=== PATIENT | female | born 1955 | race Caucasian/White ===

== ENCOUNTER 2020-08-23 23:36 | Inpatient (IN) ==
--- NOTE | 2020-08-24 00:09 | Emergency Department Note ---
History of Present Illness General Chief complaint: Abdominal Pain Stated complaint: ABD PAIN Time Seen by Provider: 08/23/20 23:49 Source: patient Mode of arrival: ambulatory Limitations: no limitations History of Present Illness Provider complaint: abdominal pain Onset (ago): day(s) 4 Location: abdomen Radiation: back Severity: severe Pain Consistency: + constant Maximum Pain Intensity: 10 Current Pain Intensity: 10 Quality: + constant Relieved By: + none Exacerbated By: + eating Associated symptoms: + nausea/vomiting Treatments prior to arrival: none This is a 65-year-old female who presents complaining of several days of upper abdominal pain which she feels is similar to a prior episode of pancreatitis. Patient states her last episode of pancreatitis was 20 years ago. She states it was secondary to a gallstone. She had already had her gallbladder taken out previously. She states as result of that she has been was 3 months hospitalized at [facility] in [place] and ultimately became a diabetic as result of that experience. Patient states pain began Sunday evening, and has been constant since then. She states she has been intermittently nauseated but has not vomited. No diarrhea or change in bowel movements. States pain is mostly in her upper abdomen, however today began to radiate into her back. No fevers, no recent illness or exposure. No recent change in medications or diet. Patient states last thing she ate prior to pain starting on Sunday evening was tuna. Patient states she did get her first dose of coronavirus vaccine. She did previously have coronavirus back in June. Pt seen during a time of high acuity and national emergency pandemic while wearing PPE. Home Medications Medication Instructions Recorded Confirmed Type aspirin 81 mg PO DAILY 08/24/20 08/24/20 History calcium carbonate [Calcium 600] 600 mg PO DAILY 08/24/20 08/24/20 History insulin lispro protamin-lispro 12 unit SUBCUT BID 08/24/20 08/24/20 History [Humalog Mix 75-25 KwikPen] lisinopril 10 mg PO DAILY 08/24/20 08/24/20 History metoprolol succinate 25 mg PO DAILY 08/24/20 08/24/20 History gynkjvaz-bla-jcrc-FA-lutein 1 tab PO DAILY 08/24/20 08/24/20 History [Multivitamin Women 50 Plus] Allergies Allergy/AdvReac Type Severity Reaction Status Date / Time Sulfa (Sulfonamide Allergy Intermediate MOUTH Verified 08/24/20 00:11 Antibiotics) SWELLING meperidine AdvReac NAUSEA Verified 08/24/20 00:11 morphine AdvReac NAUSEA Verified 08/24/20 00:11 oxycodone AdvReac NAUSEA Verified 08/24/20 00:11 Past Med/Surg History Medical History Diabetes Pancreatitis Social History Smoking Status: Never smoker Hx Alcohol Use: Yes Alcohol type: wine Hx Substance Use: No Preferred Language: Azerbaijani Communication Ability: Effective Beliefs That Will Affect Care: None Current Living Situation: Spouse Other Information That Helps Us Care for You: No Feels Safe at Home: Yes Safety Concerns: Feels Safe At This Time Assistive Devices: None Review of Systems See HPI for pertinent positives & negatives. and A total of 10 systems reviewed and were otherwise negative Physical Exam Vital Signs Vital Signs - 24 hr 08/24/20 00:13 08/24/20 00:30 08/24/20 01:00 Pulse Rate 62 60 60 Pulse Rate from SpO2 Sensor 63 61 61 Respiratory Rate 26 H 29 H 18 Blood Pressure 183/82 H 160/92 H 139/82 Blood Pressure Mean 115 114 101 Pulse Oximetry 100 100 99 08/24/20 01:49 08/24/20 02:00 08/24/20 02:31 Pulse Rate 69 66 73 Pulse Rate from SpO2 Sensor 69 67 73 Respiratory Rate 23 18 28 H Blood Pressure 165/85 H 152/86 H 175/101 H Blood Pressure Mean 111 108 125 Pulse Oximetry 99 100 100 08/24/20 03:45 Pulse Rate 54 L Pulse Rate from SpO2 Sensor 54 L Respiratory Rate 7 L Blood Pressure 154/81 H Blood Pressure Mean 105 Pulse Oximetry 100 GENERAL: alert, uncomfortable appearing, well nourished, no distress, non-toxic EYE EXAM: normal conjunctiva, PERRL and EOM's grossly intact OROPHARYNX: no exudate, no erythema, lips, buccal mucosa, and tongue normal and mucous membranes are moist NECK: supple, no nuchal rigidity, no adenopathy, non-tender LUNGS: Clear to auscultation. Normal chest wall mechanics, no w/r/r HEART: no murmurs, S1 normal and S2 normal ABDOMEN: abdomen soft, upper abdominal tenderness with palpation, normo-active bowel sounds, no masses, no rebound or guarding. BACK: Back is symmetrical on inspection and there is no deformity, no midline tenderness, no CVA tenderness. SKIN: no rashes and no bruising UPPER EXTREMITIES: upper extremities are grossly normal. FROM, nml pulses b/l. LOWER EXTREMITIES: No pitting edema. FROM, nml pulses b/l. NEURO EXAM: Normal sensorium, cranial nerves II-XII grossly intact, normal speech, no gross weakness of arms, no gross weakness of legs. Gross sensation intact. Course Course 0220: Updated on labs and CT imaging. Pt states still having pain, no nausea. Patient and daughter at bedside now relaying more information regarding her pancreatitis and subsequent surgeries several years ago. 0243: Discussed with Dr. Herrera. 0250: Discussed with Jaswinder De Leon PA-C covering for general surgery. He will evaluate the patient. Administered Medications Acetaminophen (Acetaminophen 325 Mg Tab) 650 mg PO Q4H PRN PRN Reason: Headache or Pain Stop: 09/23/20 16:17 Last Admin: 08/24/20 16:45 Dose: 650 mg Documented by: [id number] Enoxaparin Sodium (Enoxaparin Inj 60 Mg/0.6 Ml Syr) 60 mg SQ Q12H [facility] Stop: 09/23/20 14:29 Last Admin: 08/24/20 16:05 Dose: 60 mg Documented by: [id number] Pantoprazole Sodium 40 mg/ (Syringe) 10 mls @ 5 mls/min IV BID [facility] Stop: 09/23/20 08:59 Last Admin: 08/24/20 20:24 Dose: 5 mls/min Documented by: [id number] Admin: 08/24/20 09:51 Dose: Not Given Documented by: [id number] Sodium Chloride (Nss 1000ml) 1,000 mls @ 125 mls/hr IV .Q8H [facility] Stop: 09/23/20 08:49 Last Admin: 08/24/20 09:49 Dose: 125 mls/hr Documented by: [id number] Piperacillin Sod/Tazobactam (Sod 3.375 gm/ Dextrose) 115 mls @ 28.75 mls/hr IV Q8H [facility]; Protocol Stop: 09/03/20 13:59 Last Admin: 08/24/20 21:53 Dose: 28.8 mls/hr Documented by: [id number] Infusion: 08/24/20 18:08 Dose: 0 mls/hr Documented by: [id number] Admin: 08/24/20 13:34 Dose: 28.8 mls/hr Documented by: [id number] Insulin Aspart (Insulin Aspart 100 Units/Ml 3 Ml Pen) 0 units SC ACHS [facility] Stop: 09/23/20 08:44 Last Admin: 08/24/20 20:20 Dose: Not Given Documented by: [id number] Cosigned by: [id number] Admin: 08/24/20 17:27 Dose: 5 units Documented by: [id number] Cosigned by: [id number] Admin: 08/24/20 12:00 Dose: 2 units Documented by: [id number] Cosigned by: [id number] Admin: 08/24/20 09:39 Dose: Not Given Documented by: [id number] Cosigned by: [id number] Metoprolol Succinate (Metoprolol Succ 25mg Ext Rel Tab) 25 mg PO DAILY [facility] Stop: 09/23/20 08:59 Last Admin: 08/24/20 09:49 Dose: 25 mg Documented by: [id number] Discontinued Medications Heparin Sodium/Dextrose (Heparin Iv Adult Wt-Based Standard With Bolus Protocol) 1 ea IV Q15M [facility]; Protocol Stop: 09/23/20 14:10 Last Admin: 08/24/20 15:22 Dose: Not Given Documented by: [id number] Hydromorphone HCl (Hydromorphone Inj 0.5 Mg/0.5 Ml Syr) 0.5 mg IV Q15M PRN PRN Reason: Pain Stop: 09/07/20 00:00 Last Admin: 08/24/20 02:34 Dose: 0.5 mg Documented by: [id number] Admin: 08/24/20 00:30 Dose: 0.5 mg Documented by: [id number] Sodium Chloride (Nss 1000ml) 1,000 mls @ 125 mls/hr IV .Q8H [facility] Stop: 09/23/20 00:00 Last Admin: 08/24/20 08:18 Dose: Not Given Documented by: [id number] Infusion: 08/24/20 08:18 Dose: 0 mls/hr Documented by: [id number] Admin: 08/24/20 00:32 Dose: 125 mls/hr Documented by: [id number] Pantoprazole Sodium 40 mg/ (Syringe) 10 mls @ 5 mls/min IV NOW ONE Stop: 08/24/20 02:09 Last Admin: 08/24/20 02:34 Dose: 5 mls/min Documented by: [id number] Piperacillin Sod/Tazobactam (Sod 3.375 gm/ Dextrose) 115 mls @ 230 mls/hr IV NOW STA; Protocol Stop: 08/24/20 09:18 Last Infusion: 08/24/20 11:17 Dose: 0 mls/hr Documented by: [id number] Admin: 08/24/20 09:48 Dose: 230 mls/hr Documented by: [id number] Ioversol (Optiray 300 100ml) 100 ml IV ONCE ONE Stop: 08/24/20 01:41 Last Admin: 08/24/20 01:40 Dose: 86 ml Documented by: [id number] Ondansetron HCl (Ondansetron Inj 2 Mg/Ml 2 Ml Vial) 4 mg IV NOW STA Stop: 08/24/20 00:01 Last Admin: 08/24/20 00:29 Dose: 4 mg Documented by: [id number] Ondansetron HCl (Ondansetron Inj 2 Mg/Ml 2 Ml Vial) 4 mg IV NOW STA Stop: 08/24/20 04:59 Last Admin: 08/24/20 05:04 Dose: 4 mg Documented by: [id number] Medical Decision Making Differential Diagnosis Differential diagnoses includes but is not limited to gastritis, peptic ulcer disease, GERD, gallbladder disease, pancreatitis, small bowel obstruction, acute coronary syndrome, pericarditis, ischemic bowel, irritable bowel disease, irritable bowel syndrome, appendicitis, diverticulitis, malignancy, hernia, urinary tract infection, torsion, [/ectopic (if female)], perforation, trauma, infectious. Medical Records Attestation: I reviewed the patient's medical records. Home Medications Current Medication List: was personally reviewed by me Laboratory Data Attestation: I reviewed the patient's lab results. Result diagrams: 08/24/20 09:28 08/24/20 09:28 Lab Results 08/24/20 08/24/20 08/24/20 Range/Units 00:15 00:15 00:15 WBC 9.56 (4.8-10.8) K/uL RBC 4.97 (4.2-5.4) M/uL Hgb 15.3 (12.0-16.0) g/dL Hct 42.9 (37-47) % MCV 86.3 (80-100) fL MCH 30.8 (25-34) pg MCHC 35.7 (32-36) g/dL RDW Std Deviation 41.6 (36.4-46.3) fL RDW Coeff of Steph 13.1 (11.5-14.5) % Plt Count 177 (130-400) K/uL MPV 11.2 H (7.4-10.4) fL Immature Gran % (Auto) 0.1 % Neut % (Auto) 65.9 % Lymph % (Auto) 19.6 % [place] % (Auto) 10.3 % Eos % (Auto) 3.6 % Baso % (Auto) 0.5 % Neut # (Auto) 6.31 (1.4-6.5) K/uL Lymph # (Auto) 1.87 (1.2-3.4) K/uL [place] # (Auto) 0.98 H (0.11-0.59) K/uL Eos # (Auto) 0.34 (0-0.5) K/uL Baso # (Auto) 0.05 (0-0.2) K/uL Immature Gran # (Auto) 0.01 (0.00-0.02) K/uL PT 10.9 (9.0-12.0) Seconds INR 1.1 (0.9-1.1) Sodium 142 (136-145) mmol/L Potassium 4.2 (3.5-5.1) mmol/L Chloride 110 H (98-107) mmol/L Carbon Dioxide 24 (21-32) mmol/L Anion Gap 8.0 (3-11) BUN 32 H (7-18) mg/dl Creatinine 1.46 H (0.6-1.2) mg/dl Est Cr Clr Drug Dosing 33.6 ml/min Est GFR ( Amer) 43.6 Est GFR (Non-Af Amer) 37.6 BUN/Creatinine Ratio 22.1 H (10-20) Glucose 132 H (70-99) mg/dl Calcium 10.1 (8.5-10.1) mg/dl Magnesium 2.0 (1.8-2.4) mg/dl Total Bilirubin 0.7 (0.2-1) mg/dl AST 18 (15-37) U/L ALT 24 (12-78) U/L Alkaline Phosphatase 116 (45-117) U/L Troponin I < 0.015 (0-0.045) ng/ml Total Protein 8.5 H (6.4-8.2) gm/dl Albumin 4.2 (3.4-5.0) gm/dl Globulin 4.3 H (2.5-4.0) gm/dl Albumin/Globulin Ratio 1.0 (0.9-2) Lipase 26 L (73-393) U/L Procalcitonin (0-0.5) ng/ml Urine Color Urine Appearance (Clear) Urine pH (4.5-7.5) Ur Specific [place] (1.000-1.030) Urine Protein (Negative) Urine Glucose (UA) (Negative) Urine Ketones (Negative) Urine Blood (Negative) Urine Nitrite (Negative) Urine Bilirubin (Negative) Urine Urobilinogen (Negative) Ur Leukocyte Esterase (Negative) Urine WBC (Auto) (0-5) /hpf Urine RBC (Auto) (0-4) /hpf U Hyaline Cast (Auto) (0-5) /lpf U Epithel Cells (Auto) (0-5) /lpf Urine Bacteria (Auto) (Negative) Ur Renal Epithelial Cell Calcium Oxalate Crystal (None Prsent) Granular Casts (0) /lpf WBC Casts (0) /lpf 08/24/20 08/24/20 Range/Units 00:17 00:17 WBC (4.8-10.8) K/uL RBC (4.2-5.4) M/uL Hgb (12.0-16.0) g/dL Hct (37-47) % MCV (80-100) fL MCH (25-34) pg MCHC (32-36) g/dL RDW Std Deviation (36.4-46.3) fL RDW Coeff of Steph (11.5-14.5) % Plt Count (130-400) K/uL MPV (7.4-10.4) fL Immature Gran % (Auto) % Neut % (Auto) % Lymph % (Auto) % [place] % (Auto) % Eos % (Auto) % Baso % (Auto) % Neut # (Auto) (1.4-6.5) K/uL Lymph # (Auto) (1.2-3.4) K/uL [place] # (Auto) (0.11-0.59) K/uL Eos # (Auto) (0-0.5) K/uL Baso # (Auto) (0-0.2) K/uL Immature Gran # (Auto) (0.00-0.02) K/uL PT (9.0-12.0) Seconds INR (0.9-1.1) Sodium (136-145) mmol/L Potassium (3.5-5.1) mmol/L Chloride (98-107) mmol/L Carbon Dioxide (21-32) mmol/L Anion Gap (3-11) BUN (7-18) mg/dl Creatinine (0.6-1.2) mg/dl Est Cr Clr Drug Dosing ml/min Est GFR ( Amer) Est GFR (Non-Af Amer) BUN/Creatinine Ratio (10-20) Glucose (70-99) mg/dl Calcium (8.5-10.1) mg/dl Magnesium (1.8-2.4) mg/dl Total Bilirubin (0.2-1) mg/dl AST (15-37) U/L ALT (12-78) U/L Alkaline Phosphatase (45-117) U/L Troponin I (0-0.045) ng/ml Total Protein (6.4-8.2) gm/dl Albumin (3.4-5.0) gm/dl Globulin (2.5-4.0) gm/dl Albumin/Globulin Ratio (0.9-2) Lipase (73-393) U/L Procalcitonin 0.06 (0-0.5) ng/ml Urine Color Yellow Urine Appearance Clear (Clear) Urine pH 5.0 (4.5-7.5) Ur Specific [place] 1.017 (1.000-1.030) Urine Protein Negative (Negative) Urine Glucose (UA) Negative (Negative) Urine Ketones 1+ H (Negative) Urine Blood Negative (Negative) Urine Nitrite Negative (Negative) Urine Bilirubin Negative (Negative) Urine Urobilinogen Negative (Negative) Ur Leukocyte Esterase Trace H (Negative) Urine WBC (Auto) 10-30 H (0-5) /hpf Urine RBC (Auto) 0-4 (0-4) /hpf U Hyaline Cast (Auto) 5-10 H (0-5) /lpf U Epithel Cells (Auto) >30 H (0-5) /lpf Urine Bacteria (Auto) 1+ H (Negative) Ur Renal Epithelial Cell Not Reportable Calcium Oxalate Crystal Present A (None Prsent) Granular Casts 1-5 H (0) /lpf WBC Casts 1-5 H (0) /lpf Imaging Data Radiologist's Impression: CT abdomen and pelvis with contrast: Poorly characterized processes in the upper abdomen without the use of enteric contrast. Apparent thickening and heterogeneity involving the stomach and duodenum, may be from peptic ulcer disease/ulcers or gastroenteritis. Extensive edema in the surrounding area, cannot exclude occult perforation. No pneumoperitoneum. Cannot exclude fluid collections. Reactive thickening in the colon and small bowel in this region. Probable complex gallbladder with air, cannot exclude fistula to the GI tract or eroded stone etc. Pneumobilia. No visible pancreatic parenchyma. IVC filter. Appendix not identified. Nonobstructive bowel gas pattern. Edema in the mesentery. 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 Mesenteric nodes. Basilar atelectasis/pneumonitis. Radiologist: Nazia Ruelas MD ECG Data Attestation: I personally reviewed and interpreted this ECG as follows: Indication: + abdominal pain Rate (beats per minute): 63 Rhythm: + normal sinus ECG Intervals/blocks: + Normal QRS and + Normal QT ECG [place]: + Normal ECG ST segments: + Normal ST segments MDM Narrative This is a 65-year-old female who presents with 4 to 5 days of upper abdominal pain that she felt was consistent with a prior episode of pancreatitis. Patient with extensive past surgical history secondary to the prior episode of pancreatitis. Labs are drawn and sent, patient sent for CT imaging of the abdomen and pelvis. Patient's labs reassuring. UA suboptimal, patient with no symptoms. I do not suspect occult UTI. Patient was nauseated and was given medication for nausea as well as pain, was started on IV fluids as a precaution. Patient with complicated CT read per overnight stat rad. Patient did not have a surgical abdomen on multiple rechecks and repeat exams. She was made aware of all results. Patient was afebrile, no leukocytosis, no elevated procalcitonin. Given persistence of pain, and possible need for GI evaluation given mention of inflammation along the stomach and duodenum, I discussed with her additional inpatient management. She verbalized understanding was in agreement. Patient was started on IV Protonix. I did discuss the case and asked general surgery to consult, as well as discussed the case with the hospitalist. Patient was hemodynamically stable while she was in the emergency department. An order was placed for continuous cardiac monitoring. The monitor shows a rate of _62_ with _normal sinus__ rhythm. Impression & Plan Abdominal pain, Nausea & vomiting Discharge Plan Visit Data Chief Complaint: Abdominal Pain Stated Complaint: ABD PAIN ED Provider: Marissa Gutiérrez Discharge Problem: Abdominal pain, Nausea & vomiting Patient Disposition: Admitted As Inpatient Discharge Instructions Interventions: ED Discharge Assessment Last Done: 08/24/20 07:37 Discharge Problem: Abdominal pain Qualifiers: Abdominal location: upper abdomen, unspecified Qualified Code(s): R10.10 - Upper abdominal pain, unspecified Nausea & vomiting Qualifiers: Vomiting type: unspecified Vomiting Intractability: non-intractable Qualified Code(s): R11.2 - Nausea with vomiting, unspecified
[2020-08-24 00:28] LABS: Basophils # (auto) 0.05 K/uL (0-0.2); Basophils % (auto) 0.5 %; Eosinophils # (auto) 0.34 K/uL (0-0.5); Eosinophils % (auto) 3.6 %; Hematocrit (blood only) 42.9 % (37-47); Hemoglobin 15.3 g/dL (12.0-16.0); Immature Granulocytes # (auto) 0.01 K/uL (0.00-0.02); Immature Granulocytes % (auto) 0.1 %; Lymphocytes # (auto) 1.87 K/uL (1.2-3.4); Lymphocytes % (auto) 19.6 %; Mean Corpuscular Hemoglobin 30.8 pg (25-34); Mean Corpuscular Hgb Conc 35.7 g/dL (32-36); Mean Corpuscular Volume 86.3 fL (80-100); Mean Platelet Volume 11.2 fL (7.4-10.4); Monocytes # (auto) 0.98 K/uL (0.11-0.59); Monocytes % (auto) 10.3 %; Neutrophils # (auto) 6.31 K/uL (1.4-6.5); Neutrophils % (auto) 65.9 %; Platelet Count 177 K/uL (130-400); RDW Coefficient of Variation 13.1 % (11.5-14.5); RDW Standard Deviation 41.6 fL (36.4-46.3); Red Blood Count 4.97 M/uL (4.2-5.4); White Blood Count 9.56 K/uL (4.8-10.8)
[2020-08-24] MEDS: HYDROmorphone INJ 0.5 MG/0.5 ML SYR IV PRN ×2 (00:30→02:34)
[2020-08-24] MEDS: SODIUM CHLORIDE 0.9% 1000ML 1,000 ML IV SCH ×4 (00:32→23:58)
[2020-08-24 00:35] LABS: Appearance Urine Clear (Clear); Bilirubin Urine Negative (Negative); Blood Urine Negative (Negative); Color Urine Yellow; Epithelial Cell Urine Auto >30 /lpf (0-5); Glucose Urine UA Negative (Negative); Ketones Urine 1+ (Negative); Leukocyte Esterase Urine Trace (Negative); Nitrite Urine Negative (Negative); Protein Urine Negative (Negative); RBC Urine Automated 0-4 /hpf (0-4); Specific Gravity Urine 1.017 (1.000-1.030); Urobilinogen Urine Negative (Negative)
[2020-08-24 00:40] LABS: INR 1.1 (0.9-1.1); Prothrombin Time 10.9 Seconds (9.0-12.0)
[2020-08-24 00:50] LABS: Alanine Aminotransferase 24 U/L (12-78); Albumin Level 4.2 gm/dl (3.4-5.0); Aspartate Aminotransferase 18 U/L (15-37); BUN Creatinine Ratio 22.1 (10-20); Blood Urea Nitrogen 32 mg/dl (7-18); Calcium 10.1 mg/dl (8.5-10.1); Carbon Dioxide 24 mmol/L (21-32); Chloride 110 mmol/L (98-107); Creatinine Clr Calc Pharmacy 33.6 ml/min; Est GFR (African American) 43.6; Est GFR (Non-African American) 37.6; Glucose 132 mg/dl (70-99); Lipase 26 U/L (73-393); Potassium 4.2 mmol/L (3.5-5.1); Sodium 142 mmol/L (136-145)
[2020-08-24 00:55] LABS: Alkaline Phosphatase 116 U/L (45-117); Bilirubin,Total 0.7 mg/dl (0.2-1); Globulin 4.3 gm/dl (2.5-4.0); Total Protein 8.5 gm/dl (6.4-8.2); Troponin I < 0.015 ng/ml (0-0.045)
[2020-08-24 00:58] LABS: Calcium Oxalate Crystals Urine Present (None Prsent)
[2020-08-24 01:00] LABS: Bacteria Urine Automated 1+ (Negative)
[2020-08-24] MEDS ORDERED: OPTIRAY 300 100mL IV ONE (01:40)
[2020-08-24] MEDS ORDERED: PANTOprazole 40 MG in SYRINGE 0 ML IV ONE (02:08)
--- NOTE | 2020-08-24 03:31 | Surgery Consultation ---
Date of Consultation August 24, 2020 Assessment & Plan (1) Abdominal pain: The etiology of patient's abdominal pain has not been ascertained. CT scan and clinical presentation raises concern for potential peptic ulcer disease. Discussed the case with the emergency room physician and the patient is being admitted to the hospital by the hospitalist service. Due to the CT scan reading may be beneficial to repeat patient's abdominal CAT scan utilizing oral contrast. In addition requesting a gastroenterology consultation for consideration of performing an upper endoscopy should be considered. At the present time patient does not have an acute abdomen requiring emergent surgical intervention. We will continue following while the patient is hospitalized. Supervising Physician Co-Signing Physician Notes Patient was discussed with Jaswinder De Leon overnight, imaging personally reviewed as well as the labs. 65-year-old female with complex surgical history to include pancreatic resection for chronic pancreatitis along with hepaticojejunostomy and gastrojejunostomy, possible Nasima-en-Y. This was many years ago and she did have some difficulty with hepatic strictures afterwards but she has not had any issues for several years. She no longer follows with her surgeon. She has been having epigastric pain seems to be worse after eating. In the emergency department she had stable vitals and a benign abdominal exam. Her labs showed a normal white count with no left shift. CT scan overnight read showed inflammation fluid around the stomach and small bowel concerning for possible marginal ulcer, and an occult perforation cannot be ruled out. The formal read by our radiologist showed no evidence of perforation but agreed with the rest of it. We repeated the CT scan with oral contrast and there was no evidence of extravasation. At this point she likely has a marginal ulcer and would benefit from Protonix and sulcal fate. GI should be consulted for possible endoscopy. Of note she now has a positive Covid test and is on the Covid driscoll. Surgery will follow peripherally, call with questions or concerns. If any surgical intervention is required, she should be transferred to a tertiary center due to her complex surgical history. History of Present Illness Reason for Consultation: Abdominal pain History of Present Illness This is a 65-year-old female who presented to [facility] emergency department secondary to abdominal pain that has been present x3 days. She notes pain is primarily located in epigastric area. She says the pain does radiate to her back and is worse after eating anything. Initially she did not have any nausea vomiting but over the past 12 hours she has had nausea vomiting but denies hematemesis. She denies any palliative factors for her abdominal pain. She notes that she did have a normal bowel movement this morning and den ies any recent melanotic stools. She denies any chest pain. She denies any shortness of breath. She denies any fevers, shakes, chills. Patient does have a complicated surgical gastroenterology history. Patient says in the past she has suffered from chronic pancreatitis. She is seen by various specialists at [facility] in [place]. Because of her chronic pancreatitis patient did require a cholecystectomy as well as a Nasima-en-Y hepaticojejunostomy was performed in 2003. She notes that this was her most recent abdominal surgery but has had numerous other abdominal surgeries in the past. She does note with her litany of abdominal surgeries she has had the majority of her pancreas surgically resected. As result of some of her surgery she did develop a biliary stricture which required multiple ERCPs with stent placement and exchanges that was performed on a for 6-week basis but was most recently performed in 2003. Patient notes that since 2003 she has been doing relatively well from a gastroenterology standpoint and does not seen a business team leader or surgical supervisor since that time. She merely follows with her local family physician for her medical care. In the emergency department patient did have labs and imaging which were independently reviewed by myself. Labs consisted of a CBC which revealed her hemoglobin, hematocrit, white blood cell count, and platelet count were all within normal range. Her INR was noted to be normal. A chemistry profile showed that her sodium and potassium were normal. She had slight elevations of her BUN/creatinine at 32 and 1.4. Her bilirubin, LFTs, alkaline phosphatase, and lipase were all not elevated. Urinalysis did reveal 1+ bacteria, 10-30 white blood cells per high-power field, and trace leukocyte esterase. A Covid test has yet to be performed but is no over the mention the patient did receive her Covid vaccine. In addition to labs she did have a CT scan of her abdomen pelvis utilizing IV contrast but no oral contrast. The study showed thickening of the stomach and duodenum with edema of the surrounding area. Pneumobilia was noted however there is no pneumoperitoneum noted. There is no evidence of small bowel obstruction. At the time of my interview the patient was resting in bed. She was in no distress but was having some epigastric abdominal discomfort. Allergies Allergy/AdvReac Type Severity Reaction Status Date / Time Sulfa (Sulfonamide Allergy Intermediate MOUTH Verified 08/24/20 00:11 Antibiotics) SWELLING meperidine AdvReac NAUSEA Verified 08/24/20 00:11 morphine AdvReac NAUSEA Verified 08/24/20 00:11 oxycodone AdvReac NAUSEA Verified 08/24/20 00:11 Home Medications Medication Instructions Recorded Confirmed Type aspirin 81 mg PO DAILY 08/24/20 08/24/20 History calcium carbonate [Calcium 600] 600 mg PO DAILY 08/24/20 08/24/20 History insulin lispro protamin-lispro 12 unit SUBCUT BID 08/24/20 08/24/20 History [Humalog Mix 75-25 KwikPen] lisinopril 10 mg PO DAILY 08/24/20 08/24/20 History metoprolol succinate 25 mg PO DAILY 08/24/20 08/24/20 History fvluptsz-bab-wqxr-FA-lutein 1 tab PO DAILY 08/24/20 08/24/20 History [Multivitamin Women 50 Plus] Patient History Medical History Diabetes Pancreatitis Social History Smoking Status: Never smoker Hx Alcohol Use: Yes Alcohol type: wine Hx Substance Use: No Preferred Language: Romanian Communication Ability: Effective Beliefs That Will Affect Care: None Current Living Situation: Spouse Other Information That Helps Us Care for You: No Feels Safe at Home: Yes Safety Concerns: Feels Safe At This Time Review of Systems Constitutional: no fever and no chills Eyes: no diplopia Ear, Nose, Mouth, Throat: no ear pain Respiratory: no cough and no dyspnea Cardiovascular: no chest pain Gastrointestinal: + abdominal pain, + nausea and + vomiting; no coffee ground emesis, no diarrhea/loose stools and no blood in stools Genitourinary: no dysuria Musculoskeletal: no back pain Integumentary: no rash Neurologic: no localized weakness Physical Exam Constitutional: well developed and well nourished; no acute distress Eyes: no conjunctival abnormality Wears glasses ENMT: Ears: no hearing impairment Neck: trachea midline Respiratory: normal respiratory effort; no respiratory distress and no labored breathing Cardiovascular: Rate/Rhythm: regular rate and regular rhythm Gastrointestinal (Abdomen): Abdomen is soft and nondistended. Bowel sounds are present. No rebound tenderness or guarding. Patient did have pain with palpation noted in the epigastric region. Patient had a well-healed midline incision. No palpable hernias. Musculoskeletal: No calf tenderness Skin: normal turgor Neurologic: moves all extremities Psychiatric: Orientation: alert and oriented x 3 Affect: + anxious affect Results & Data ([facility]) Vital Signs (Past 12 Hours) Vital Signs Temp Pulse Resp BP Pulse Ox 08/24/20 01:00 60 18 139/82 99 08/24/20 00:30 60 29 H 160/92 H 100 08/24/20 00:13 62 26 H 183/82 H 100 08/23/20 23:44 36.6 C 70 20 165/83 H 99 PG Care Time/CCT Total # of Minutes Spent Total Time Spent with Patient: Total time spent is greater than 50% in coordination of care (as documented) at patient's floor/unit and/or counseling patient: Coding Level of Care Code 42262 Inpt Consult Level 5 Diagnoses Abdominal pain R10.9
[2020-08-24] MEDS ORDERED: ONDANSETRON INJ 2 MG/ML 2 ML VIAL IV STA ×2 (04:58)
[2020-08-24 05:55] LABS: Influenza A virus by PCR Negative (Neg); Influenza B virus by PCR Negative (Neg); RSV by PCR Negative (Neg)
[2020-08-24 06:07] LABS: SARS CoV2 RNA(COVID-19) InHosp POSITIVE (Negative)
[2020-08-24] MEDS ORDERED: PIPERACILL/TAZOBAC CONSULT ACTIVE PRN (08:15)
[2020-08-24] MEDS ORDERED: HYDROmorphone INJ 0.5 MG/0.5 ML SYR IV PRN (08:15)
[2020-08-24] MEDS ORDERED: ONDANSETRON INJ 2 MG/ML 2 ML VIAL IV PRN (08:15)
[2020-08-24] MEDS ORDERED: NITROGLYCERIN SL 0.4 MG/TAB TAB SL PRN (08:15)
--- NOTE | 2020-08-24 08:39 | History and Physical Report ---
DATE OF ADMISSION: 08/24/2020 CHIEF COMPLAINT: Abdominal pain. HISTORY OF PRESENT ILLNESS: A 65-year-old female with past medical history significant for type 2 diabetes, history of idiopathic chronic pancreatitis, subclinical hypothyroidism, diaphragmatic hernia, hypertension, chronic kidney disease stage III, history of Dupuytren's contracture of the right hand, factor V Leiden mutation, status post IVC filter. Lives with her , comes with severe abdominal pain. Abdominal pain started on Sunday, but not getting better. Mostly in the upper abdomen epigastric region Passed a bowel movement today. In the ER, she started to have nausea and vomiting. Denies any other complaints. No chest pain or shortness of breath. No cough, no fever, no chills, no headache, no blurred visions, no earache, no runny nose, no sore throat. Ambulating okay. Normal bladder movements. The patient has a history of necrotizing pancreatitis secondary to gallstones in February of 2001. At that time, she was in critical condition in septic shock status post intubation and she underwent replacement of Raegan patch and several washouts during a long stay in the hospital and finally her patch was removed and abdomen was closed in April of 2001. 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 The patient says since that hospitalization she was doing fine. ALLERGIES: SULFA ANTIBIOTICS, MEPERIDINE, MORPHINE, OXYCODONE. PAST MEDICAL HISTORY: As mentioned above. 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 MEDICATIONS: The patient is on aspirin 81 mg p.o. daily, calcium carbonate 600 mg p.o. daily, Humalog Mix 75/25 12 units b.i.d., lisinopril 10 mg p.o. daily, metoprolol succinate 25 mg p.o. daily, multivitamins 1 tablet p.o. daily. FAMILY HISTORY: Significant for brother has factor V Leiden deficiency, sister has factor V Leiden deficiency, daughter has thyroid cancer, brother has diabetes, father has diabetes, mother has diabetes and heart disorder and stroke. SOCIAL HISTORY: . No smoking, no alcohol, no drug use. REVIEW OF SYSTEMS: As per HPI. Rest of the review of systems negative. PHYSICAL EXAMINATION: GENERAL: The patient is of moderate build, not in acute distress. VITAL SIGNS: Temperature 36.6, pulse 65, respiratory rate 12, blood pressure 133/68, oxygen 100% on room air. HEENT: Pupils equal, round, and reactive to light. Oral mucosa moist. NECK: No JVD, no neck masses. CARDIOVASCULAR: S1, S2 heard, regular rate and rhythm, no murmur, no gallop. RESPIRATORY SYSTEM: Normal AP diameter. No accessory muscle use. No wheezing, no crackles. ABDOMEN: Soft, bowel sounds present. Tenderness in the epigastric region. Guarding present. No rebound tenderness. No distention. CENTRAL NERVOUS SYSTEM: Cranial nerves II-XII grossly intact, nonfocal. EXTREMITIES: No edema, no erythema. LABORATORY DATA: WBC 9.5, hemoglobin 15.3, hematocrit 42.9, platelets 177. PT 10.9, INR 1.1. Sodium 142, potassium 4.2, chloride 110, bicarbonate 24, BUN 32, creatinine 1.4, serum glucose 132, calcium 10.1, magnesium 2, total bilirubin 0.7, AST 18, ALT 24, alkaline phosphatase 116, troponin I less than 0.015. Lipase 26. Procalcitonin 0.06. Urinalysis, trace leukocyte esterase. SARS-CoV-2 PCR pending. EKG: Normal sinus rhythm with a rate of 63, no significant change was found. IMAGING DATA: CT of abdomen and pelvis with IV contrast, preliminary report shows apparent thickening and heterogenicity involving the stomach and duodenum, may be from peptic ulcer disease, gastroenteritis, extensive edema in the surrounding area. Cannot exclude occult perforation, no pneumoperitoneum, cannot exclude fluid collection, reactive thickening of the colon and small bowel in the region. No visible pancreatic parenchyma, IVC filter. Appendix not identified, nonobstructive bowel gas pattern, edema in the mesentery. 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 ASSESSMENT AND PLAN: This is a 65-year-old female who presents with severe abdominal pain. 1. Severe abdominal pain: History of necrotic pancreatitis status post debridement in 2000 and later had common biliary duct stricture and had hepatojejunostomy in December 2003. Lipase is 26. Today, CAT scan with IV contrast, preliminary report is showing possible bowel perforation, but no pneumoperitoneum and patient does not seem to be surgical abdomen. Seen By surgery and recommends Ct abdomen with po contrast. Plan is to repeat CAT scan with oral contrast and also consult GI in the a.m. We will keep her n.p.o., IV fluids, IV Dilaudid p.r.n., IV Zofran p.r.n., and closely monitor in [facility]. 2. History of diabetes: Hold Humalog Mix. Will place on insulin sliding scale. Follow the blood sugar, follow HbA1c level. 3. History of hypertension: Hold lisinopril. Continue Toprol-XL. Will monitor the blood pressure. 4. Acute kidney injury on chronic kidney disease stage III: Baseline creatinine around 1.2, presently with creatinine of 1.4. Getting fluids. Holding lisinopril.Will follow the labs. 5. History of possible urinary tract infection: Will start on empiric Rocephin. Follow the cultures. 6. History of factor V Leiden mutation: Status post IVC filter. 7. Deep venous thrombosis prophylaxis, sequential compression devices for now. DISPOSITION: Admit to [facility]. Expect to discharge home and follow with family doctor. Level 1 full code. Addendum: routine covid test came back positive. Currently seems asymptomatic. isolation precautions. Will monitor. MTDD
[2020-08-24] MEDS ORDERED: PIPERACILLIN/TAZOBACTAM 3.375 GM in DEXTROSE 5% 100 ML IV STA (08:49)
--- NOTE | 2020-08-24 09:22 | Electrocardiogram Report ---
Test Reason : Blood Pressure : / mmHG Vent. Rate : 063 BPM Atrial Rate : 063 BPM P-R Int : 162 ms QRS Dur : 084 ms QT Int : 416 ms P-R-T Axes : 065 056 048 degrees QTc Int : 425 ms Poor data quality, interpretation may be adversely affected Normal sinus rhythm Normal ECG When compared with ECG of 12-SEP-2012 09:06, No significant change was found Confirmed by Devon Delaney ([id number]) on 08/24/2020 9:22:00 AM Referred By: REFERRED SELF Confirmed By:Devon Delaney
--- NOTE | 2020-08-24 09:35 | CT Scan Report ---
ABDOMEN AND PELVIS CT WITH IV CONTRAST CT DOSE: 286.68 mGy.cm HISTORY: Acute upper abdominal pain with history of pancreatitis upper abd pain, hx pancreatitis TECHNIQUE: Multiaxial CT images of the abdomen and pelvis were performed following the IV administrat ion of 86 cc of Optiray, A dose lowering technique was utilized adhering to the principles of ALARA. COMPARISON STUDY: CTA chest 09/12/2012 FINDINGS: The imaged inferior cardiac chambers are unremarkable. Mild bibasilar atelectasis/scarring. No gross pneumoperitoneum or pneumatosis identified. Unremarkable spleen. Markedly atrophic pancreas and/or pa rtially surgically absent pancreas. Unremarkable adrenal glands. Chronic pneumobilia is also noted on the comparison 2013 exam. The liver is otherwise unremarkable. The gallbladder appears to be surgica lly absent and there are postoperative changes suggestive of enteric biliary anastomosis with air and fluid-filled structure within the lino hepatis, also partially imaged on the 2013 exam. There are t hickened small bowel loops within the abdominal right upper quadrant. Mesenteric calcifications. Unremarkable kidneys, urinary bladder and uterus. Prominent vessels within the pelvis. Atheromatous p laque of the aorta. Infrarenal IVC filter. Prominent retroperitoneal and mesenteric lymph nodes are s een measuring up to 9 mm. Postoperative changes are noted involving the stomach and small bowel of the abdominal left lower adelina drant with additional postoperative changes of the cecum. The appendix is not visualized and may be s urgically absent. There is moderate wall thickening with mucosal hyperemia involving the distal stoma ch and the entirety of the duodenum with associated inflammatory changes and small volume of upper ab dominal ascites. Upper abdominal collateral vessels with likely chronic occlusion of the superior mes enteric and splenic veins. A thrombus of the superior mesenteric vein is noted on image 111. There is no small bowel obstruction. There is mild fecal retention. No abscess. There is a 1.4 cm fluid-fille d structure medial to the duodenum on image 110 series 3. Unremarkable soft tissues. No acute fractur e. IMPRESSION: 1. Postoperative changes of the abdomen and pelvis includes postoperative changes of the stomach and small bowel. Findings suggest prior cholecystectomy with enteric biliary anastomosis. Correlation wit h patient's surgical history recommended. 2. Wall thickening with mucosal hyperemia involving the distal stomach and the entirety of the duoden um is compatible with a nonspecific gastritis with duodenitis and/or peptic ulcer disease. GI consult ation recommended. 3. There is a small peripherally enhancing fluid-filled structure medial to the duodenum which may re flect a duodenal diverticulum. A small abscess or contained perforation considered less likely. No dr ainable fluid collection. 4. Prominent retroperitoneal and mesenteric lymph nodes, likely reactive. 5. No small bowel obstruction or pneumoperitoneum. 6. The pancreas is markedly atrophic and/or partially surgically absent. 7. 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 8. Additional findings as above. ACT 112: Negative or not required by law. The above report was generated using voice recognition software. It may contain grammatical, syntax o r spelling errors. Electronically signed by: Jacob Jaramillo M.D. 08/24/2020 9:34 AM
[2020-08-24] MEDS: INSULIN ASPART 100 UNITS/ML 3 ML PEN SC SCH ×4 (09:39→20:20)
[2020-08-24 09:40] LABS: Basophils # (auto) 0.05 K/uL (0-0.2); Basophils % (auto) 0.7 %; Eosinophils # (auto) 0.25 K/uL (0-0.5); Eosinophils % (auto) 3.4 %; Hematocrit (blood only) 37.5 % (37-47); Hemoglobin 13.1 g/dL (12.0-16.0); Immature Granulocytes # (auto) 0.01 K/uL (0.00-0.02); Immature Granulocytes % (auto) 0.1 %; Lymphocytes # (auto) 1.94 K/uL (1.2-3.4); Lymphocytes % (auto) 26.3 %; Mean Corpuscular Hemoglobin 29.8 pg (25-34); Mean Corpuscular Hgb Conc 34.9 g/dL (32-36); Mean Corpuscular Volume 85.4 fL (80-100); Monocytes # (auto) 0.82 K/uL (0.11-0.59); Monocytes % (auto) 11.1 %; Neutrophils # (auto) 4.32 K/uL (1.4-6.5); Neutrophils % (auto) 58.4 %; Platelet Count 174 K/uL (130-400); RDW Coefficient of Variation 12.9 % (11.5-14.5); RDW Standard Deviation 40.7 fL (36.4-46.3); Red Blood Count 4.39 M/uL (4.2-5.4); White Blood Count 7.39 K/uL (4.8-10.8)
[2020-08-24] MEDS: METOPROLOL SUCC 25MG EXT REL TAB PO SCH (09:49)
[2020-08-24] MEDS: PANTOprazole 40 MG in SYRINGE 0 ML IV SCH ×2 (09:51→20:24)
[2020-08-24 10:06] LABS: BUN Creatinine Ratio 21.4 (10-20); Calcium 9.3 mg/dl (8.5-10.1); Creatinine Clr Calc Pharmacy 38.6 ml/min; Est GFR (African American) 51.6; Est GFR (Non-African American) 44.6; Potassium 4.3 mmol/L (3.5-5.1)
--- NOTE | 2020-08-24 11:28 | CT Scan Report ---
CT OF THE ABDOMEN AND PELVIS WITH ORAL CONTRAST CLINICAL HISTORY: severe abdominal pain. prior ct scan findings COMPARISON STUDY: CT of the abdomen and pelvis August 24, 2020 at 1:32 AM. TECHNIQUE: Axial images of the abdomen and pelvis were obtained without intravenous contrast. Oral co ntrast was administered. Automated exposure control was utilized for the study. A dose lowering tech nique was utilized adhering to the principles of ALARA. FINDINGS: Mild ground glass opacities are noted within the lower lungs. No pneumatosis, free air or p ortal venous gas is present. Pneumobilia is again noted. Evaluation of the abdomen and pelvis is subo ptimal on this unenhanced examination. Evaluation of the abdomen is better depicted on recent contras t-enhanced CT performed earlier today. Postsurgical findings involving the stomach as well as biliary enteric anastomosis are better depicted on the examination. Note is made of persistent marked wall t hickening of the duodenum and multiple jejunal loops within the right upper quadrant. Adjacent inflam mation is noted. This is similar to prior CT. No extraluminal oral contrast is present. The gallbladd er is surgically absent. Venous thrombus is not shown on this unenhanced exam. Unenhanced images of t he spleen, adrenal glands and kidneys are unremarkable. IVC filters in place. There is no evidence fo r a bowel obstruction. Prominent mesenteric nodes are noted. No acute fracture or suspicious lesion i s identified within visualized skeletal structures. There is contrast within the collecting systems, ureters and bladder from recent contrast-enhanced CT. IMPRESSION: 1. Persistent marked wall thickening of the duodenum and multiple jejunal loops with adjacent infiltr ation. Postsurgical findings, as above. The findings are better depicted on contrast enhanced CT perf ormed earlier today without significant change since that exam. The small bowel wall thickening is no nspecific but could be due to venous ischemia given venous thrombus shown on contrast enhanced exam. Peptic ulcer disease/duodenitis could appear similar. Close clinical monitoring is recommended. 2. No pneumoperitoneum. No evidence for a bowel obstruction. ACT 112: Negative or not required by law. Electronically signed by: Lance Cortez M.D. 08/24/2020 11:26 AM
[2020-08-24] MEDS: PIPERACILLIN/TAZOBACTAM 3.375 GM in DEXTROSE 5% 100 ML IV SCH ×2 (13:34→21:53)
[2020-08-24] MEDS ORDERED: Heparin IV Adult Wt-Based Standard WITH Bolus Protocol IV SCH (14:11)
[2020-08-24] MEDS ORDERED: HEPARIN SOD (PORCINE) 1000 UNIT/ML IV ONE (14:25)
[2020-08-24] MEDS ORDERED: HEPARIN SODIUM/DEXTROSE 25,000 UNITS/500 ML BAG IV SCH (14:25)
--- NOTE | 2020-08-24 15:35 | Gastrointestinal Consultation ---
Date of Consultation August 24, 2020 Assessment & Plan (1) Duodenitis: Supervising Physician Co-Signing Physician Notes Attg add: I interviewed and examined pt, reviewed chart abd labs. Pt with complicated PMH notable for Factor 5 leiden, necortizing pancreatitis in 2000, recurrent biliary strictures s/p hepatico-J in 2003, now admit for acute onset of diffuse/epigastric abd pain since Sunday. CT on admission shows diffuse thickening of stomach and duodenum, mild dilation of afferent loop without wall thickening, thrombosis of SMV and splenic vein with some perisplenic collaterals, small amt of ascites. Her pancreas appears largely absent on CT. Labs unremarkable, COVID pos. Review of her avilable med records from [facility] show CTs from 2000 which show nec panc but no mention of venous thrombosis; surgical notes which mention Nasima an Y hepaticoJ and TRISTA in . A/P: Her imaging shows diffuse thickening of the stomach and upper small intestine; this appears too extensive on CT to be explained by PUD. 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 Will empirically anticoagulate, and plan on repeating CT in 4-5 days. Plan on EGD when out of quarantine, empiric PPI in the interim. History of Present Illness Reason for Consultation: Abdominal pain Requesting Physician: Dr. Greenberg Attending Physician: Jas Lockwood DO History of Present Illness Ms. Ambika Clark is a 65 yr old female pt of Dr. Merchant with a hx of DM-2, hypothyroidism, HTN, CKDIII, Factor B Leiden mutation. She underwent hepaticojejunostomy 01/12/04 for biliary stricture secondary to pancreatitis. She presented to the ED today for a burning abdominal pain of several days duration, similar in quality and location to when she experienced pancreatitis years ago. She had nausea/vomiting in the ED, but not prior. No diarrhea. On arrival, she was found to be COVID positive. She denies any respiratory issues, headaches or fevers. On arrival, CBC, CMP and lipase normal. A non contrast CT suggested a wall thickening of the distal stomach and duodenum and chronic thrombi of the SMV and splenic vein with collaterals. Repeat CT with IV and oral contrast, also today did not show any suggestion of perforation. The pt is seen and examined while resting in bed in the Medical ICU/COVID unit. Allergies Allergy/AdvReac Type Severity Reaction Status Date / Time Sulfa (Sulfonamide Allergy Intermediate MOUTH Verified 08/24/20 00:11 Antibiotics) SWELLING meperidine AdvReac NAUSEA Verified 08/24/20 00:11 morphine AdvReac NAUSEA Verified 08/24/20 00:11 oxycodone AdvReac NAUSEA Verified 08/24/20 00:11 Home Medications Medication Instructions Recorded Confirmed Type aspirin 81 mg PO DAILY 08/24/20 08/24/20 History calcium carbonate [Calcium 600] 600 mg PO DAILY 08/24/20 08/24/20 History insulin lispro protamin-lispro 12 unit SUBCUT BID 08/24/20 08/24/20 History [Humalog Mix 75-25 KwikPen] lisinopril 10 mg PO DAILY 08/24/20 08/24/20 History metoprolol succinate 25 mg PO DAILY 08/24/20 08/24/20 History ackzhaxt-udp-pmig-FA-lutein 1 tab PO DAILY 08/24/20 08/24/20 History [Multivitamin Women 50 Plus] Patient History Medical History Diabetes Pancreatitis Social History Smoking Status: Never smoker Hx Alcohol Use: Yes Alcohol type: wine Hx Substance Use: No Preferred Language: Palauan Communication Ability: Effective Beliefs That Will Affect Care: None Current Living Situation: Spouse Other Information That Helps Us Care for You: No Feels Safe at Home: Yes Safety Concerns: Feels Safe At This Time Review of Systems Review of Systems: ROS: Gen: Denies weakness, fevers, weight loss Eyes: No eye redness, or pain, no recent vision changes Resp: No SOB, no cough Cardio: No palpitations/irregular beats, no chest pain GI: See HPI otherwise (-) : Denies pain on urination Skin: No jaundice, itching or new rashes Physical Exam Constitutional: WD/WN, vitals as above Eyes: PERRL, conjunctivae normal, anicteric sclerae ENMT: external ear and nose normal, oropharynx normal Neck: trachea midline, no thyromegaly Respiratory: normal respiratory effort, lungs clear to auscultation Cardiovascular: RRR, no murmur, no edema Gastrointestinal (Abdomen): normal bowel sounds, soft, nontender, no hepatosplenomegaly Skin: no rashes, warm and dry Neurologic: PERRL, EOMI, accommodation nl, no face palsy, no dysarthria Lymphatic: no cervical or axillary lymphadenopathy Results & Data ([facility]) Vital Signs (Past 12 Hours) Vital Signs Temp Pulse Pulse Resp BP BP Pulse Ox 08/24/20 11:16 36.4 C L 56 L 18 130/73 99 08/24/20 08:30 36.6 C 61 20 121/76 100 08/24/20 08:20 36.8 C 68 18 121/76 96 08/24/20 07:00 72 19 142/75 H 100 08/24/20 06:30 78 18 119/60 100 08/24/20 06:00 61 7 L 123/62 100 08/24/20 05:00 70 23 152/90 H 100 08/24/20 04:30 65 12 133/68 100 08/24/20 04:00 56 L 7 L 150/83 H 100 08/24/20 03:45 54 L 7 L 154/81 H 100 Laboratory Results WBC 7.39, Hb 13.4, Hct 37.5. Diagnostic Findings CT abd pelvis (non contrast) 08/24/20: 1. Postoperative changes of the abdomen and pelvis includes postoperative changes of the stomach and small bowel. Findings suggest prior cholecystectomy with enteric biliary anastomosis. Correlation with patient's surgical history recommended. 2. Wall thickening with mucosal hyperemia involving the distal stomach and the entirety of the duodenum is compatible with a nonspecific gastritis with duodenitis and/or peptic ulcer disease. GI consultation recommended. 3. There is a small peripherally enhancing fluid-filled structure medial to the duodenum which may reflect a duodenal diverticulum. A small abscess or contained perforation considered less likely. No drainable fluid collection. 4. Prominent retroperitoneal and mesenteric lymph nodes, likely reactive. 5. No small bowel obstruction or pneumoperitoneum. 6. The pancreas is markedly atrophic and/or partially surgically absent. 7. 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 CT abd/pelvis with oral contrast 08/24/20: 1. Persistent marked wall thickening of the duodenum and multiple jejunal loops with adjacent infiltration. Postsurgical findings, as above. The findings are better depicted on contrast enhanced CT performed earlier today without significant change since that exam. The small bowel wall thickening is nonspecific but could be due to venous ischemia given venous thrombus shown on contrast enhanced exam. Peptic ulcer disease/duodenitis could appear similar. Close clinical monitoring is recommended. 2. No pneumoperitoneum. No evidence for a bowel obstruction.
[2020-08-24] MEDS: ENOXAPARIN INJ 60 MG/0.6 ML SYR SQ SCH (16:05)
[2020-08-24] MEDS ORDERED: ACETAMINOPHEN 325 MG TAB PO PRN (16:18)
[2020-08-25] MEDS: ENOXAPARIN INJ 60 MG/0.6 ML SYR SQ SCH ×2 (01:58→14:28)
[2020-08-25] MEDS: PIPERACILLIN/TAZOBACTAM 3.375 GM in DEXTROSE 5% 100 ML IV SCH ×3 (06:24→22:35)
[2020-08-25] MEDS: PANTOprazole 40 MG in SYRINGE 0 ML IV SCH ×2 (07:31→22:34)
[2020-08-25] MEDS: METOPROLOL SUCC 25MG EXT REL TAB PO SCH (07:32)
[2020-08-25] MEDS: SODIUM CHLORIDE 0.9% 1000ML 1,000 ML IV SCH ×2 (08:19→15:43)
[2020-08-25] MEDS: INSULIN ASPART 100 UNITS/ML 3 ML PEN SC SCH ×4 (09:14→22:25)
--- NOTE | 2020-08-25 15:29 | Hospitalist Progress Note ---
Date of Service August 25, 2020 Assessment & Plan (1) Duodenitis: Presented with severe abdominal pain, h/o necrotizing pancreatitis 2/2 gallstones in 02/2001. 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 Cont Zosyn as she is overall improved. GI considering EGD this admission once off isolation. (2) Splenic vein thrombosis: Currently on empiric anticoagulation with Lovenox since 08/24. Uncertain chronicity of mesenteric venous thrombosis seen on contrast-enhanced CT exam yesterday morning. Consult Vascular surgery. (3) Factor V Leiden: No h/o DVT per her report. Currently not on anticoagulation at home. (4) Acute kidney injury superimposed on chronic kidney disease: baseline creatinine is 1.1. She is currently elevated to 1.3. Will trend BMP. (5) DMII (diabetes mellitus, type 2): Increased hyperglycemia on labs today. Added glargine. (6) HTN (hypertension): Lisinopril held on admission, clinically improved. Will consider restarting. (7) Idiopathic chronic pancreatitis: has a h/o pancreatitis in the past. GI following case. (8) History of COVID-19: This patient was infected with COVID-19 mid-June and was never hospitalized or treated with medical therapies. Her positive result is not currently visible to our system and as she remains COVID positive, she will remain on isolation until this report may be obtained. She is not actively ill with COVID-19 at this time and has already received 1 of 2 covid vaccinations which is still encouraged. Her current symptoms are not thought secondary to a vaccine-related illness or side effect. (9) DVT prophylaxis: Full dose Lovenox-cont for now in case of procedure Full Code Dispo-to home when able. For now cont COVID precautions. Anaid Petty DO [facility] Hospitalist Admission and Anticipated Discharge Date Admission Date: August 24, 2020 Subjective 65 yo F admitted for severe epigastric abdominal pain, improved since admission on current therapy. Reports her pain developed exactly two days after her first covid vaccine shot. She reports an improvement in epigastric and RUQ pain today that is still triggered by eating. Lantus was added to better control glucose Denies respiratory symptoms or other known COVID symptoms at this time. Noted to have had COVID positive infection in mid June-requested records. Currently remaining in isolation. Imaging from yesterday reveals Upper abdominal collateral vessels with likely chronic occlusion of the superior mesenteric and splenic veins. Thrombus of the superior mesenteric vein noted. There is a 1.4 cm fluid-filled structure medial to the duodenum. Differential includes but is not limited to a small duodenal diverticulum versus abscess which is considered less likely. No drainable fluid collection was seen on imaging. Overall there is wall thickening of the distal stomach and entirety of the duodenum consistent with a nonspecific gastritis with duodenitis and/or peptic ulcer disease. GI is considering EGD. She is overall clinically improved. Imaging revealed prominent retroperitoneal and mesenteric lymph nodes that are likely reactive. Review of Systems Review of Systems: All systems reviewed & are unremarkable except as noted in Subjective Physical Exam Physical Exam: CONSTITUTIONAL: WNWD, vitals as above, generally well- appearing EYES: normal conjunctivae, no scleral icterus ENT: external ear and nose normal, MMM RESPIRATORY: clear to auscultation bilaterally, no crackles, rales or wheezes, normal respiratory effort CARDIOVASCULAR: regular rate and rhythm, S1 and 2 heard without murmurs, gallops or rubs, no JVD, no peripheral edema, no carotid bruits GASTROINTESTINAL: normal bowel sounds, soft, TTP in RUQ and epigastric areas, nondistended. MUSCULOSKELETAL: strength 5/5 throughout, head is normocephalic and atraumatic, neck supple, normal palpation of chest wall without tenderness SKIN: warm and dry NEUROLOGIC: CN 2-12 grossly intact, no sensory deficit, normal cognition, normal speech, no tremor. No gross focal deficits. PSYCHIATRIC: alert cooperative and oriented to person, place and time. Results & Data Results & Data ([facility]) Vital Signs (Past 12 Hours) Vital Signs Temp Pulse Pulse Resp BP Pulse Ox Pulse Ox 08/25/20 14:50 64 08/25/20 11:39 36.6 C 63 18 139/68 97 08/25/20 09:40 55 L 08/25/20 08:15 95 08/25/20 07:10 36.7 C 77 20 152/79 H 96 08/25/20 03:43 36.9 C 71 20 142/84 H 96 Medications Administered Current Inpatient Medications Acetaminophen (Acetaminophen 325 Mg Tab) 650 mg PO Q4H PRN PRN Reason: Headache or Pain Stop: 09/23/20 16:17 Last Admin: 08/24/20 16:45 Dose: 650 mg Documented by: Enoxaparin Sodium (Enoxaparin Inj 60 Mg/0.6 Ml Syr) 60 mg SQ Q12H [facility] Stop: 09/23/20 14:29 Last Admin: 08/25/20 14:28 Dose: 60 mg Documented by: Hydromorphone HCl (Hydromorphone Inj 0.5 Mg/0.5 Ml Syr) 0.5 mg IV Q3H PRN PRN Reason: Pain Stop: 09/07/20 08:14 Pantoprazole Sodium 40 mg/ (Syringe) 10 mls @ 5 mls/min IV BID [facility] Stop: 09/23/20 08:59 Last Admin: 08/25/20 07:31 Dose: 5 mls/min Documented by: Piperacillin Sod/Tazobactam (Sod 3.375 gm/ Dextrose) 115 mls @ 28.75 mls/hr IV Q8H [facility]; Protocol Stop: 09/03/20 13:59 Last Admin: 08/25/20 13:15 Dose: 28.8 mls/hr Documented by: Insulin Aspart (Insulin Aspart 100 Units/Ml 3 Ml Pen) 0 units SC ACHS [facility] Stop: 09/23/20 08:44 Last Admin: 08/25/20 13:02 Dose: 11 units Documented by: Insulin Glargine (Insulin Glargine Solostar 100 Units/Ml 3 Ml Pen) 12 units SC BID [facility] Stop: 09/24/20 20:59 Metoprolol Succinate (Metoprolol Succ 25mg Ext Rel Tab) 25 mg PO DAILY [facility] Stop: 09/23/20 08:59 Last Admin: 08/25/20 07:32 Dose: 25 mg Documented by: Miscellaneous Information (Piperacill/Tazobac Consult Active) 1 ea N/A UD PRN PRN Reason: Consult Stop: 09/23/20 08:14 Nitroglycerin (Nitroglycerin Sl 0.4 Mg/Tab Tab) 0.4 mg SL UD PRN PRN Reason: Chest Pain Stop: 09/23/20 08:14 Ondansetron HCl (Ondansetron Inj 2 Mg/Ml 2 Ml Vial) 4 mg IV Q6H PRN PRN Reason: Nausea Stop: 09/23/20 08:14
[2020-08-25] MEDS ORDERED: GLUCAGON FOR INJ 1 MG VIAL IM PRN (15:30)
[2020-08-25] MEDS ORDERED: DEXTROSE 50% 50 ML SYRINGE IV PRN (15:30)
[2020-08-25] MEDS ORDERED: CARBOHYDRATES FOR HYPOGLYCEMIA PO PRN (15:30)
[2020-08-25] MEDS ORDERED: GLUCOSE 40% GEL 15 GM TUBE PO PRN (15:30)
[2020-08-25] MEDS ORDERED: GLUCOSE 10 TABS/TUBE PO PRN (15:30)
[2020-08-25] MEDS ORDERED: INSULIN HUMAN REGULAR PER UNIT 5 UNITS in SYRINGE 4.95 ML IV ONE (18:15)
[2020-08-25] MEDS: INSULIN GLARGINE SOLOSTAR 100 UNITS/ML 3 ML PEN SC SCH (22:30)
[2020-08-26] MEDS: ENOXAPARIN INJ 60 MG/0.6 ML SYR SQ SCH (02:15)
[2020-08-26] MEDS: PIPERACILLIN/TAZOBACTAM 3.375 GM in DEXTROSE 5% 100 ML IV SCH ×2 (06:07→13:45)
[2020-08-26] MEDS: INSULIN ASPART 100 UNITS/ML 3 ML PEN SC SCH ×4 (08:00→20:35)
[2020-08-26] MEDS: INSULIN GLARGINE SOLOSTAR 100 UNITS/ML 3 ML PEN SC SCH (08:00)
[2020-08-26] MEDS: PANTOprazole 40 MG in SYRINGE 0 ML IV SCH ×2 (08:21→20:36)
[2020-08-26] MEDS: METOPROLOL SUCC 25MG EXT REL TAB PO SCH (08:21)
--- NOTE | 2020-08-26 10:10 | Communication Note ---
Date of Service: August 26, 2020 I reviewed the films and chart of this patient. CT scan showed occlusion of the splenic vein and superior mesenteric vein which appears chronic based on the a ppearance of the vessel lumen and the large amount of collateral veins in the area which are compensating for these occlusions. It takes at least a few weeks for this amount of collateral vessels to develop. Due to her liden V and her mesenteric vein thrombosis, would recommend terminal superintendent anticoagulation. If she develops symptoms of bowel ischemia due to venous congestion, the only treatment is resecting the necrotic portion of bowel. Thank you
[2020-08-26] MEDS ORDERED: INSULIN GLARGINE SOLOSTAR 100 UNITS/ML 3 ML PEN SC ONE (11:37)
[2020-08-26] MEDS ORDERED: INSULIN HUMAN REGULAR PER UNIT 5 UNITS in SYRINGE 0 ML IV ONE (11:45)
--- NOTE | 2020-08-26 12:20 | Gastroenterology Progress Note ---
Date of Service August 26, 2020 Assessment & Plan (1) Duodenitis: COVID results received from [facility] - was positive there in June. Per primary hospitalist, the isolation will be discontinued as now thought not a active episode of COVID. Please keep NPO after midnight, plan EGD + enteroscopy tomorrow.. Present on Admission?: Yes Admission and Anticipated Discharge Date Admission Date: August 24, 2020 Supervising Physician Co-Signing Physician Notes I interviewed and examined pt, reviewed chart and labs. Pt without pain, nancy PO, feels well. Ate breakfast with slight pain, ate lunch without difficulty. Abd soft, NT . Acute abdominal pain, remote h/o nec panc Imaging with mesenteric venous thrombosis, collaterals - Her presentation does suggest that she may have acute on chronic MVT, given pain, evidence of portal gastropathy on imaging, and mesenteric edema ascites. DDX for presentation includes aff loop syndrome, although LFT's abnl and no wall thick of aff loop on imaging - She is begin taken out of resp isolation. Will plan EGD/enteroscopy tomorrow to screen for varices, acid-peptic disease, and J-J anastamosis. Subjective 65 yo F with hx of Factor 5 leiden, necrotizing pancreatitis in 2000, recurrent biliary strictures s/p hepatico-J in 2003admitted with epigastric abdominal pain, now nearly resolved, able to eat regular consistency diet w/o pain or nausea. Imaging suggesting upper abdominal collateral vessels with likely chronic occlusion of the superior mesenteric and splenic veins. Thrombus of the superior mesenteric vein noted. gastric and duodenal wall thickening and large area of inflammation/fluid surrounding. Today pt sitting up in a chair at the bedside. Physically well, but emotionally discouraged and looking forward to being able to go home again. Review of Systems Review of Systems: ROS: Gen: Denies weakness, fevers, weight loss Eyes: No eye redness, or pain, no recent vision changes Resp: No SOB, no cough Cardio: No palpitations/irregular beats, no chest pain GI: See HPI otherwise (-) : Denies pain on urination Skin: No jaundice, itching or new rashes Physical Exam Constitutional: WD/WN, vitals as above Eyes: PERRL, conjunctivae normal, anicteric sclerae ENMT: external ear and nose normal, oropharynx normal Neck: trachea midline, no thyromegaly Respiratory: normal respiratory effort, lungs clear to auscultation Cardiovascular: RRR, no murmur, no edema Gastrointestinal (Abdomen): normal bowel sounds, soft, nontender, no hepatosplenomegaly Skin: no rashes, warm and dry Neurologic: PERRL, EOMI, accommodation nl, no face palsy, no dysarthria Lymphatic: no cervical or axillary lymphadenopathy Results & Data ([facility]) Vital Signs (Past 12 Hours) Vital Signs Temp Pulse Resp BP Pulse Ox Pulse Ox 08/26/20 11:22 36.2 C L 62 18 160/93 H 100 08/26/20 08:20 67 08/26/20 08:00 99 08/26/20 07:29 36.5 C 58 L 18 130/79 99 08/26/20 04:13 36.2 C L 61 143/[address] abd/pelvis 08/24/20: 1. Persistent marked wall thickening of the duodenum and multiple jejunal loops with adjacent infiltration. Postsurgical findings, as above. The findings are better depicted on contrast enhanced CT performed earlier today without significant change since that exam. The small bowel wall thickening is nonspecific but could be due to venous ischemia given venous thrombus shown on contrast enhanced exam. Peptic ulcer disease/duodenitis could appear similar. Close clinical monitoring is recommended. 2. No pneumoperitoneum. No evidence for a bowel obstruction.
[2020-08-26 12:46] LABS: Basophils # (auto) 0.02 K/uL (0-0.2); Basophils % (auto) 0.4 %; Eosinophils % (auto) 4.4 %; Hematocrit (blood only) 35.6 % (37-47); Hemoglobin 12.2 g/dL (12.0-16.0); Immature Granulocytes # (auto) 0.01 K/uL (0.00-0.02); Immature Granulocytes % (auto) 0.2 %; Lymphocytes # (auto) 1.44 K/uL (1.2-3.4); Lymphocytes % (auto) 31.5 %; Mean Corpuscular Hemoglobin 29.5 pg (25-34); Mean Corpuscular Hgb Conc 34.3 g/dL (32-36); Mean Platelet Volume 11.6 fL (7.4-10.4); Monocytes # (auto) 0.16 K/uL (0.11-0.59); Monocytes % (auto) 3.5 %; Neutrophils # (auto) 2.74 K/uL (1.4-6.5); Platelet Count 171 K/uL (130-400); RDW Coefficient of Variation 12.6 % (11.5-14.5); RDW Standard Deviation 39.9 fL (36.4-46.3); Red Blood Count 4.14 M/uL (4.2-5.4); White Blood Count 4.57 K/uL (4.8-10.8)
--- NOTE | 2020-08-26 12:53 | Gastrointestinal Consultation ---
Date of Consultation August 24, 2020 History of Present Illness Attending Physician: Jas Lockwood DO Allergies Allergy/AdvReac Type Severity Reaction Status Date / Time Sulfa (Sulfonamide Allergy Intermediate MOUTH Verified 08/24/20 00:11 Antibiotics) SWELLING meperidine AdvReac NAUSEA Verified 08/24/20 00:11 morphine AdvReac NAUSEA Verified 08/24/20 00:11 oxycodone AdvReac NAUSEA Verified 08/24/20 00:11 Home Medications Medication Instructions Recorded Confirmed Type aspirin 81 mg PO DAILY 08/24/20 08/24/20 History calcium carbonate [Calcium 600] 600 mg PO DAILY 08/24/20 08/24/20 History insulin lispro protamin-lispro 12 unit SUBCUT BID 08/24/20 08/24/20 History [Humalog Mix 75-25 KwikPen] lisinopril 10 mg PO DAILY 08/24/20 08/24/20 History metoprolol succinate 25 mg PO DAILY 08/24/20 08/24/20 History kjawummp-gme-gndd-FA-lutein 1 tab PO DAILY 08/24/20 08/24/20 History [Multivitamin Women 50 Plus] Patient History Medical History Diabetes Pancreatitis Social History Smoking Status: Never smoker Hx Alcohol Use: Yes Alcohol type: wine Hx Substance Use: No Preferred Language: Croatian Communication Ability: Effective Beliefs That Will Affect Care: None Current Living Situation: Spouse Other Information That Helps Us Care for You: No Feels Safe at Home: Yes Safety Concerns: Feels Safe At This Time Assistive Devices: Glasses Results & Data ([facility]) Vital Signs (Past 12 Hours) Vital Signs Temp Pulse Pulse Resp BP BP Pulse Ox 08/24/20 11:16 36.4 C L 56 L 18 130/73 99 08/24/20 08:30 36.6 C 61 20 121/76 100 08/24/20 08:20 36.8 C 68 18 121/76 96 08/24/20 07:00 72 19 142/75 H 100 08/24/20 06:30 78 18 119/60 100 08/24/20 06:00 61 7 L 123/62 100 08/24/20 05:00 70 23 152/90 H 100 08/24/20 04:30 65 12 133/68 100 08/24/20 04:00 56 L 7 L 150/83 H 100
[2020-08-26 13:04] LABS: Albumin Globulin Ratio 0.9 (0.9-2); Albumin Level 3.4 gm/dl (3.4-5.0); BUN Creatinine Ratio 14.8 (10-20); Bilirubin,Total 0.6 mg/dl (0.2-1); Calcium 9.1 mg/dl (8.5-10.1); Creatinine Clr Calc Pharmacy 43.8 ml/min; Est GFR (African American) 59.5; Est GFR (Non-African American) 51.3; Globulin 3.8 gm/dl (2.5-4.0); Magnesium 2.3 mg/dl (1.8-2.4); Potassium 4.1 mmol/L (3.5-5.1); Total Protein 7.2 gm/dl (6.4-8.2)
[2020-08-26] MEDS ORDERED: INSULIN HUMAN REGULAR PER UNIT 5 UNITS in SYRINGE 0 ML IV SCH (17:30)
--- NOTE | 2020-08-26 20:27 | Hospitalist Progress Note ---
Date of Service August 26, 2020 Assessment & Plan (1) Duodenitis: Presented with severe abdominal pain, h/o necrotizing pancreatitis 2/2 gallstones in 02/2001. 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 Duodenitis doesn't appear to be infectious at this point and may have been related to inflammation from blood clot. Zosyn stopped. Imaging revealed a 1.4cm fluid filled structure medial to the duodenum, possibly a diverticulum. EGD to review area planned for tomorrow. (2) Superior mesenteric vein thrombosis: thrombus noted in SMV and splenic veins with collateral circulation giving the impression these are somewhat chronic. Currently on empiric anticoagulation with Lovenox since 08/24. There is some question of the chronicity here and she is clearly better after a couple of days of anticoagulation(and abx). Will transition to Eliquis once anticoagulation able to be resumed post-procedure. She will need to be anticoagulated for at least 3 months and possible lifelong. (3) Splenic vein thrombosis: (4) Factor V Leiden: No h/o DVT per her report. Currently not on anticoagulation at home. (5) Acute kidney injury superimposed on chronic kidney disease: baseline creatinine is 1.1. She returned back to baseline. (6) DMII (diabetes mellitus, type 2): Hyperglycemia persisted-increased aggressiveness of insulin coverage. Notably patient is feeling better and eating more than she typically does at home. Also stopped Zosyn which was being given in dextrose. (7) HTN (hypertension): Lisinopril held on admission, clinically improved. Restart now. (8) Idiopathic chronic pancreatitis: has a h/o pancreatitis in the past. GI following case. (9) History of COVID-19: This patient was infected with COVID-19 mid-June and was never hospitalized or treated with medical therapies. Positive result was received along with outpatient note. Will scan into system (07/04/20) She is not actively ill with COVID-19 at this time and has already received 1 of 2 covid vaccinations which is still encouraged. Her current symptoms are not thought secondary to a vaccine-related illness or side effect. (10) DVT prophylaxis: Full dose Lovenox-cont for now in case of procedure Full Code Dispo-to home when able. For now cont COVID precautions. Anaid Petty DO [facility] Hospitalist Admission and Anticipated Discharge Date Admission Date: August 24, 2020 Subjective 65 yo F admitted for severe epigastric abdominal pain, improved since admission on current therapy including Zosyn and anticoagulation with Lovenox. Reports her pain developed exactly two days after her first covid vaccine shot. Collateral vasculature present suggests the clot is greater than one week old and, therefore, less likely a vaccine reaction. However, it does appear acute. Discussed case with GI who is planning an EGD in am. She is improved again today WRT abdominal discomfort with a tremendous improvement with pain/discomfort on exam She is eating well and reports to be eating much more than she was at home Glucose is uncontrolled-Zosyn stopped which was in dextrose Insulin coverage was increased again today. COVID Isolation removed as she was recently sick in June. Review of Systems Review of Systems: All systems reviewed & are unremarkable except as noted in Subjective Physical Exam Physical Exam: CONSTITUTIONAL: WNWD, vitals as above, generally well- appearing EYES: normal conjunctivae, no scleral icterus ENT: external ear and nose normal, MMM RESPIRATORY: clear to auscultation bilaterally, no crackles, rales or wheezes, normal respiratory effort CARDIOVASCULAR: regular rate and rhythm, S1 and 2 heard without murmurs, gallops or rubs, no JVD, no peripheral edema, no carotid bruits GASTROINTESTINAL: normal bowel sounds, soft, nontender (improved!), nondistended. MUSCULOSKELETAL: strength 5/5 throughout, head is normocephalic and atraumatic, neck supple, normal palpation of chest wall without tenderness SKIN: warm and dry NEUROLOGIC: CN 2-12 grossly intact, no sensory deficit, normal cognition, normal speech, no tremor. No gross focal deficits. PSYCHIATRIC: alert cooperative and oriented to person, place and time. Results & Data Results & Data ([facility]) Vital Signs (Past 12 Hours) Vital Signs Temp Pulse Resp BP Pulse Ox 08/26/20 15:08 36.5 C 62 18 147/75 H 100 08/26/20 11:22 36.2 C L 62 18 160/93 H 100 Laboratory Results Short CBC 08/26/20 Range/Units 12:00 WBC 4.57 L (4.8-10.8) K/uL Hgb 12.2 (12.0-16.0) g/dL Hct 35.6 L (37-47) % Plt Count 171 (130-400) K/uL BMP 08/26/20 12:00 Sodium 137 Potassium 4.1 Chloride 105 Carbon Dioxide 26 BUN 17 Creatinine 1.13 Glucose 347 H* Calcium 9.1 Liver Function 08/26/20 Range/Units 12:00 Total Bilirubin 0.6 (0.2-1) mg/dl AST 15 (15-37) U/L ALT 19 (12-78) U/L Alkaline Phosphatase 90 (45-117) U/L Albumin 3.4 (3.4-5.0) gm/dl Medications Administered Current Inpatient Medications Acetaminophen (Acetaminophen 325 Mg Tab) 650 mg PO Q4H PRN PRN Reason: Headache or Pain Stop: 09/23/20 16:17 Last Admin: 08/24/20 16:45 Dose: 650 mg Documented by: Calcium Carbonate (Calcium Carbonate 1250mg Tab) 1,250 mg PO DAILY BURT Stop: 09/26/20 08:59 Dextrose (Dextrose 50% 50 Ml Syringe) 25 - 50 ml IV UD PRN; Protocol PRN Reason: Hypoglycemia Protocol Stop: 09/24/20 15:29 Enoxaparin Sodium (Enoxaparin Inj 60 Mg/0.6 Ml Syr) 60 mg SQ Q12H BURT Stop: 09/23/20 14:29 Last Admin: 08/26/20 02:15 Dose: 60 mg Documented by: Glucagon (Glucagon For Inj 1 Mg Vial) 1 mg IM UD PRN; Protocol PRN Reason: Hypoglycemia Protocol Stop: 09/24/20 15:29 Glucose (Glucose 40% Gel 15 Gm Tube) 15 - 30 gm PO UD PRN; Protocol PRN Reason: Hypoglycemia Protocol Stop: 09/24/20 15:29 Glucose (Glucose 10 Tabs/Tube) 4 - 8 tabs PO UD PRN; Protocol PRN Reason: Hypoglycemia Protocol Stop: 09/24/20 15:29 Hydromorphone HCl (Hydromorphone Inj 0.5 Mg/0.5 Ml Syr) 0.5 mg IV Q3H PRN PRN Reason: Pain Stop: 09/07/20 08:14 Pantoprazole Sodium 40 mg/ (Syringe) 10 mls @ 5 mls/min IV BID BURT Stop: 09/23/20 08:59 Last Admin: 08/26/20 08:21 Dose: 5 mls/min Documented by: Insulin Aspart (Insulin Aspart 100 Units/Ml 3 Ml Pen) 0 units SC ACHS [facility] Stop: 09/23/20 08:44 Last Admin: 08/26/20 18:04 Dose: 9 units Documented by: Insulin Aspart (Insulin Aspart 100 Units/Ml 3 Ml Pen) 0 units SC 0100 ONE Stop: 08/27/20 01:01 Last Admin: 08/26/20 17:56 Dose: 300 units Documented by: Insulin Aspart (Insulin Aspart 100 Units/Ml 3 Ml Pen) 0 units SC 0400 ONE Stop: 08/27/20 04:01 Insulin Glargine (Insulin Glargine Solostar 100 Units/Ml 3 Ml Pen) 20 units SC HS [facility] Stop: 09/25/20 20:59 Insulin Glargine (Insulin Glargine Solostar 100 Units/Ml 3 Ml Pen) 10 units SC QAM [facility] Stop: 09/26/20 08:59 Lisinopril (Lisinopril 10 Mg Tab) 10 mg PO DAILY [facility] Stop: 09/26/20 08:59 Metoprolol Succinate (Metoprolol Succ 25mg Ext Rel Tab) 25 mg PO DAILY [facility] Stop: 09/23/20 08:59 Last Admin: 08/26/20 08:21 Dose: 25 mg Documented by: Miscellaneous (Carbohydrates For Hypoglycemia ) 15 - 30 gm PO UD PRN PRN Reason: Hypoglycemia Treatment Stop: 09/24/20 15:29 Nitroglycerin (Nitroglycerin Sl 0.4 Mg/Tab Tab) 0.4 mg SL UD PRN PRN Reason: Chest Pain Stop: 09/23/20 08:14 Ondansetron HCl (Ondansetron Inj 2 Mg/Ml 2 Ml Vial) 4 mg IV Q6H PRN PRN Reason: Nausea Stop: 09/23/20 08:14
[2020-08-26] MEDS ORDERED: INSULIN GLARGINE SOLOSTAR 100 UNITS/ML 3 ML PEN SC SCH ×3 (21:00)
[2020-08-27] MEDS ORDERED: INSULIN ASPART 100 UNITS/ML 3 ML PEN SC ONE ×2 (01:00→04:00)
[2020-08-27 07:48] LABS: Creatinine Clr Calc Pharmacy 47.9 ml/min; Est GFR (African American) 65.8; Est GFR (Non-African American) 56.7
[2020-08-27] MEDS: PANTOprazole 40 MG in SYRINGE 0 ML IV SCH (08:30)
[2020-08-27] MEDS: METOPROLOL SUCC 25MG EXT REL TAB PO SCH (08:30)
[2020-08-27] MEDS: INSULIN ASPART 100 UNITS/ML 3 ML PEN SC SCH ×4 (08:31→19:46)
[2020-08-27] MEDS ORDERED: INSULIN GLARGINE SOLOSTAR 100 UNITS/ML 3 ML PEN SC SCH (09:00)
[2020-08-27] MEDS ORDERED: lisinopril 10 MG TAB PO SCH (09:00)
[2020-08-27] MEDS ORDERED: CALCIUM CARBONATE 1250MG TAB PO SCH (09:00)
--- NOTE | 2020-08-27 14:39 | Anesthesiology Consultation ---
Date of Service August 27, 2020 Assessment & Plan Chart Review Chart Review: Acceptable Risk for Surgery Consults Requested none ASA ASA4 Proposed Anesthesia Anesthesia Type: MAC Risk / Benefits Reviewed With: PT / POA / Parent / Guardian, Accepts Plan and Informed Consent Obtained Additional Comments: with COVID precautions and full PPE History Surgery Operation Date: 08/27/20 16:30 Proposed Procedures p Esophagogastroduodenoscopy Dr Andino - Majo Andino MD Height/Weight Height: 5 ft 5 in Weight: 55.5 kg Allergies Allergy/AdvReac Type Severity Reaction Status Date / Time Sulfa (Sulfonamide Allergy Intermediate MOUTH Verified 08/24/20 00:11 Antibiotics) SWELLING meperidine AdvReac NAUSEA Verified 08/24/20 00:11 morphine AdvReac NAUSEA Verified 08/24/20 00:11 oxycodone AdvReac NAUSEA Verified 08/24/20 00:11 Medications Home Medications Medication Instructions Recorded Confirmed Last Taken aspirin 81 mg PO DAILY 08/24/20 08/24/20 08/24/20 calcium carbonate [Calcium 600] 600 mg PO DAILY 08/24/20 08/24/20 08/24/20 insulin lispro protamin-lispro 12 unit SUBCUT BID 08/24/20 08/24/20 08/24/20 [Humalog Mix 75-25 KwikPen] 25units today lisinopril 10 mg PO DAILY 08/24/20 08/24/20 08/24/20 metoprolol succinate 25 mg PO DAILY 08/24/20 08/24/20 08/24/20 juvtocaw-wfo-gwmt-FA-lutein 1 tab PO DAILY 08/24/20 08/24/20 08/24/20 [Multivitamin Women 50 Plus] apixaban 5 mg PO BID #70 tab 08/27/20 Unknown Active Medications Generic Name Dose Route Start Last Admin Trade Name Freq PRN Reason Stop Dose Admin Acetaminophen 650 mg 08/24/20 16:18 08/24/20 16:45 Acetaminophen 325 Mg Tab PO 09/23/20 16:17 650 mg Q4H PRN Administration Headache or Pain Calcium Carbonate 1,250 mg 08/27/20 09:00 08/27/20 08:30 Calcium Carbonate 1250mg Tab PO 09/26/20 08:59 1,250 mg DAILY BURT Administration Enoxaparin Sodium 60 mg 08/24/20 14:30 08/26/20 02:15 Enoxaparin Inj 60 Mg/0.6 Ml Syr SQ 09/23/20 14:29 60 mg Q12H BURT Administration Glucose 4 - 8 tabs 08/25/20 15:30 08/27/20 04:12 Glucose 10 Tabs/Tube PO 09/24/20 15:29 4 tabs UD PRN Administration Hypoglycemia Protocol Protocol Pantoprazole Sodium 40 mg/ 10 mls @ 5 mls/min 08/24/20 09:00 08/27/20 08:30 Syringe IV 09/23/20 08:59 5 mls/min BID BURT Administration Insulin Aspart 0 units 08/24/20 08:45 08/27/20 12:12 Insulin Aspart 100 Units/Ml 3 Ml Pen SC 09/23/20 08:44 Not Given ACHS BURT Insulin Glargine 20 units 08/26/20 21:00 08/26/20 20:46 Insulin Glargine Solostar 100 Units/Ml 3 Ml Pen SC 09/25/20 20:59 20 units HS BURT Administration Insulin Glargine 10 units 08/27/20 09:00 08/27/20 10:09 Insulin Glargine Solostar 100 Units/Ml 3 Ml Pen SC 09/26/20 08:59 Not Given QAM BURT Lisinopril 10 mg 08/27/20 09:00 08/27/20 08:30 Lisinopril 10 Mg Tab PO 09/26/20 08:59 10 mg DAILY BURT Administration Metoprolol Succinate 25 mg 08/24/20 09:00 08/27/20 08:30 Metoprolol Succ 25mg Ext Rel Tab PO 09/23/20 08:59 25 mg DAILY BURT Administration NPO Date Last Intake of Fluids: 08/26/20 Time Last Intake of Fluids: 23:59 Date Last Intake of Solids: 08/26/20 Time Last Intake of Solids: 23:59 Past Medical History Medical History Abdominal pain Acute kidney injury superimposed on chronic kidney disease CKD (chronic kidney disease), stage III Diabetes Diaphragmatic hernia DMII (diabetes mellitus, type 2) Duodenitis Factor V Leiden History of cholangitis History of COVID-19 HTN (hypertension) Idiopathic chronic pancreatitis Pancreatitis Presence of IVC filter Splenic vein thrombosis Subclinical hypothyroidism Superior mesenteric vein thrombosis Past Surgical History Surgical History H/O lymph node biopsy Axilla History of exploratory laparotomy History of incision and drainage History of resection of pancreas S/P ERCP Past Anesthesia History No Hx of Anesthesia Complications and No Family Hx of Anesthesia Complications History of PONV No Hx of PONV and No Hx of Motion Sickness Social History Smoking Status: Never smoker Hx Alcohol Use: Yes Alcohol type: wine alcohol intake frequency: a few times a month Hx Substance Use: No Physical Exam Vital Signs Last Vital Signs Temp 36.7 C 08/27/20 11:55 Pulse 66 08/27/20 11:55 Resp 18 08/27/20 11:55 BP 141/92 H 08/27/20 11:55 Pulse Ox 100 08/27/20 11:55 Testing Laboratory Results 08/26/20 12:00 08/27/20 06:43 PT 10.9 Seconds (9.0-12.0) 08/24/20 00:15 INR 1.1 (0.9-1.1) 08/24/20 00:15 Urine Color Yellow 08/24/20 00:17 Urine Appearance Clear (Clear) 08/24/20 00:17 Urine pH 5.0 (4.5-7.5) 08/24/20 00:17 Ur Specific [place] 1.017 (1.000-1.030) 08/24/20 00:17 Urine Protein Negative (Negative) 08/24/20 00:17 Urine Glucose (UA) Negative (Negative) 08/24/20 00:17 Urine Ketones 1+ (Negative) H 08/24/20 00:17 Urine Nitrite Negative (Negative) 08/24/20 00:17 Ur Leukocyte Esterase Trace (Negative) H 08/24/20 00:17 Urine WBC (Auto) 10-30 /hpf (0-5) H 08/24/20 00:17 Urine RBC (Auto) 0-4 /hpf (0-4) 08/24/20 00:17 U Hyaline Cast (Auto) 5-10 /lpf (0-5) H 08/24/20 00:17 U Epithel Cells (Auto) >30 /lpf (0-5) H 08/24/20 00:17 Urine Bacteria (Auto) 1+ (Negative) H 08/24/20 00:17 08/24/20 00:17 Urine Culture - Final Urine,Straight Cath More than three types of organisms present, all low counts mixed probable skin uriel. No further identifications or sensitivities to follow. 08/27/20 08/27/20 08/27/20 12:09 05:47 04:30 POC Glucose 156 H 140 H 90 08/27/20 08/27/20 04:04 04:04 POC Glucose 65 L* 62 L* COVID + 08/24/20 PCR Electrocardiogram Date: 08/24/20 Findings: no NSR @ (64) Other Testing 08/24/[address] WITH IV CONTRAST CT DOSE: 286.68 mGy.cm HISTORY: Acute upper abdominal pain with history of pancreatitis upper abd pain, hx pancreatitis TECHNIQUE: Multiaxial CT images of the abdomen and pelvis were performed following the IV administration of 86 cc of Optiray, A dose lowering technique was utilized adhering to the principles of ALARA. COMPARISON STUDY: CTA chest 09/12/2012 FINDINGS: The imaged inferior cardiac chambers are unremarkable. Mild bibasilar atelectasis/scarring. No gross pneumoperitoneum or pneumatosis identified. Unremarkable spleen. Markedly atrophic pancreas and/or partially surgically absent pancreas. Unremarkable adrenal glands. Chronic pneumobilia is also noted on the comparison 2012 exam. The liver is otherwise unremarkable. The gallbladder appears to be surgically absent and there are postoperative changes suggestive of enteric biliary anastomosis with air and fluid-filled structure within the lino hepatis, also partially imaged on the 2013 exam. There are thickened small bowel loops within the abdominal right upper quadrant. Mesenteric calcifications. Unremarkable kidneys, urinary bladder and uterus. Prominent vessels within the pelvis. Atheromatous plaque of the aorta. Infrarenal IVC filter. Prominent ret roperitoneal and mesenteric lymph nodes are seen measuring up to 9 mm. Postoperative changes are noted involving the stomach and small bowel of the abdominal left lower quadrant with additional postoperative changes of the cecum. The appendix is not visualized and may be surgically absent. There is moderate wall thickening with mucosal hyperemia involving the distal stomach and the entirety of the duodenum with associated inflammatory changes and small volume of upper abdominal ascites. Upper abdominal collateral vessels with likely chronic occlusion of the superior mesenteric and splenic veins. A thrombus of the superior mesenteric vein is noted on image 111. There is no small bowel obstruction. There is mild fecal retention. No abscess. There is a 1.4 cm fluid-filled structure medial to the duodenum on image 110 series 3. Unremarkable soft tissues. No acute fracture. IMPRESSION: 1. Postoperative changes of the abdomen and pelvis includes postoperative changes of the stomach and small bowel. Findings suggest prior cholecystectomy with enteric biliary anastomosis. Correlation with patient's surgical history recommended. 2. Wall thickening with mucosal hyperemia involving the distal stomach and the entirety of the duodenum is compatible with a nonspecific gastritis with duoden itis and/or peptic ulcer disease. GI consultation recommended. 3. There is a small peripherally enhancing fluid-filled structure medial to the duodenum which may reflect a duodenal diverticulum. A small abscess or contained perforation considered less likely. No drainable fluid collection. 4. Prominent retroperitoneal and mesenteric lymph nodes, likely reactive. 5. No small bowel obstruction or pneumoperitoneum. 6. The pancreas is markedly atrophic and/or partially surgically absent. 7. 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 8. Additional findings as above. :
--- NOTE | 2020-08-27 15:27 | History & Physical Bridge Note ---
Date of Service August 27, 2020 History & Physical Bridge Note I have examined the patient, reviewed the History & Physical and in the interval since the performance of the History & Physical I have noted the following changes of clinical significance: no changes noted Enteroscopy today. Patient was explained in detail regarding risks, benefits, limitations and alternatives of the above endoscopic procedure. Risks of intravenous sedation used for procedure were also explained. Risks include, but not limited to perforation, bleeding, infection, respiratory distress, cardiac arrest and . Patient is also aware about the possibility of missed lesion. Patient's questions were answered. The patient verbalized understanding the information and agreed to undergo the procedure.
[2020-08-27] MEDS ORDERED: ePHEDrine sulfate 50 MG/ML AMP IV PRN (16:10)
[2020-08-27] MEDS ORDERED: ONDANSETRON INJ 2 MG/ML 2 ML VIAL IV PRN (16:10)
[2020-08-27] MEDS ORDERED: ATROPINE SULFATE 0.1 MG/ML 10ML SYR IV PRN (16:10)
[2020-08-27] MEDS ORDERED: fentaNYL citrate 100 MCG/2 ML VIAL IV PRN (16:10)
--- NOTE | 2020-08-27 17:53 | GI REPORT ---
Patient Name: Ambika Clark Procedure Date: 08/27/2020 4:13 PM Date of : 1955 Admit Type: Inpatient Age: 65 Gender: Female Attending MD: Majo Andino MD Procedure: Small bowel enteroscopy Providers: Majo Andino MD Referring MD: Anaid Petty Do Indications: Abdominal pain Medicines: Propofol per Anesthesia Complications: No immediate complications. Estimated Blood Loss: Estimated blood loss: none. Procedure: Pre-Anesthesia Assessment: - Prior to the procedure, a History and Physical was performed, and patient medications, allergies and sensitivities were reviewed. The patient's tolerance of previous anesthesia was reviewed. - The risks and benefits of the procedure and the sedation options and risks were discussed with the patient. All questions were answered and informed consent was obtained. - Patient identification and proposed procedure were verified prior to the procedure by the physician and the nurse. The procedure was verified in the procedure room. - Pre-procedure physical examination revealed no contraindications to sedation. After obtaining informed consent, the endoscope was passed under direct vision. Throughout the procedure, the patient's blood pressure, pulse, and oxygen saturations were monitored continuously. The Colonoscope was introduced through the mouth, and advanced to the afferent and efferent jejunal loops. The upper GI endoscopy was accomplished without difficulty. The patient tolerated the procedure well. After obtaining informed consent, the endoscope was passed under direct vision. Throughout the procedure, the patient's blood pressure, pulse, and oxygen saturations were monitored continuously. Findings: The examined esophagus was normal. The entire examined stomach was normal. Two non-bleeding cratered duodenal ulcers with no stigmata of bleeding were found in the duodenal bulb. The largest lesion was 12 mm in largest dimension. The area of the papilla had prominent villous pattern. Biopsies were taken with a cold forceps for histology. Verification of patient identification for the specimen was done by the physician and nurse using the patient's name and date. There was evidence of a widely patent jejunojejunostomy. The afferent jejunal loop and the efferent jejunal loop were both examined and were widely patent and normal. The hepaticojejunostomy was also examined and was normal and widely patent. Impression: - Normal esophagus. - Normal stomach. - Non-bleeding duodenal ulcers with no stigmata of bleeding. - Normal area of the papilla with slightly prominent villous pattern. Biopsied. - Widely patent and normal looking jejunojejunostomy, afferent and efferent jejunal loops and hepaticojejunostomy. Recommendation: - Return patient to [facility] for [facility] care. - Await pathology results. - Advance diet as tolerated. - No aspirin, ibuprofen, naproxen, or other non-steroidal anti-inflammatory drugs. - Use a proton pump inhibitor PO BID for 3 months. - Recall GI if needed. Majo Andino MD 08/27/2020 5:52:38 PM This report has been signed electronically. Note Initiated On: 08/27/2020 4:13 PM Number of Addenda: 0 I attest to the content of the Intraoperative Record and orders documented therein, exceptions below {[id number]}
--- NOTE | 2020-08-27 18:45 | Operative Report ---
Post Operative Report Pre & Post Diagnosis Operation Date: 08/27/20 16:30 Pre-Op Diagnosis: ABDOMINAL PAIN Post-Op Diagnosis: Duodenal ulcer I identified the patient and participated in the time-out.: Yes Procedure Operation Date: 08/27/20 16:30 Actual Procedures p Small Bowel Enteroscopy EGD - Majo Andino MD Surgeon Majo Andino MD Train Planner None Estimated Blood Loss 0 Findings See Below (Normal enteroscopy post modified whipples anatomy) Specimens Ampulla Description of Procedure Enteroscopy I attest to the content of the Intraoperative Record and any orders documented therein. Any exceptions are noted below.
--- NOTE | 2020-08-27 19:43 | Discharge Summary ---
Date of Service August 27, 2020 Admission HPI Per Admitting Provider HISTORY OF PRESENT ILLNESS: A 65-year-old female with past medical history significant for type 2 diabetes, history of idiopathic chronic pancreatitis, subclinical hypothyroidism, diaphragmatic hernia, hypertension, chronic kidney disease stage III, history of Dupuytren's contracture of the right hand, factor V Leiden mutation, status post IVC filter. Lives with her , comes with severe abdominal pain. Abdominal pain started on Sunday, but not getting better. Mostly in the upper abdomen epigastric region Passed a bowel movement today. In the ER, she started to have nausea and vomiting. Denies any other complaints. No chest pain or shortness of breath. No cough, no fever, no chills, no headache, no blurred visions, no earache, no runny nose, no sore throat. Ambulating okay. Normal bladder movements. The patient has a history of necrotizing pancreatitis secondary to gallstones in February of 2001. At that time, she was in critical condition in septic shock status post intubation and she underwent replacement of Raegan patch and several washouts during a long stay in the hospital and finally her patch was removed and abdomen was closed in April of 2001. 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 The patient says since that hospitalization she was doing fine. Admission Exam Per Admitting Provider PHYSICAL EXAMINATION: GENERAL: The patient is of moderate build, not in acute distress. VITAL SIGNS: Temperature 36.6, pulse 65, respiratory rate 12, blood pressure 133/68, oxygen 100% on room air. HEENT: Pupils equal, round, and reactive to light. Oral mucosa moist. NECK: No JVD, no neck masses. CARDIOVASCULAR: S1, S2 heard, regular rate and rhythm, no murmur, no gallop. RESPIRATORY SYSTEM: Normal AP diameter. No accessory muscle use. No wheezing, no crackles. ABDOMEN: Soft, bowel sounds present. Tenderness in the epigastric region. Guarding present. No rebound tenderness. No distention. CENTRAL NERVOUS SYSTEM: Cranial nerves II-XII grossly intact, nonfocal. EXTREMITIES: No edema, no erythema. 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 Factor V Leiden mutation Acute kidney injury superimposed on chronic kidney disease stage III-resolved History of COVID-19 in June 2020 Discharge Exam CONSTITUTIONAL: WNWD, vitals as above, generally well-appearing EYES: normal conjunctivae, no scleral icterus ENT: external ear and nose normal, MMM RESPIRATORY: clear to auscultation bilaterally, no crackles, rales or wheezes, normal respiratory effort CARDIOVASCULAR: regular rate and rhythm, S1 and 2 heard without murmurs, gal lops or rubs, no JVD, no peripheral edema, no carotid bruits GASTROINTESTINAL: normal bowel sounds, soft, nontender (improved!), nondistended. MUSCULOSKELETAL: strength 5/5 throughout, head is normocephalic and atraumatic, neck supple, normal palpation of chest wall without tenderness SKIN: warm and dry NEUROLOGIC: CN 2-12 grossly intact, no sensory deficit, normal cognition, normal speech, no tremor. No gross focal deficits. PSYCHIATRIC: alert cooperative and oriented to person, place and time. Discharge Data Allergies Allergy/AdvReac Type Severity Reaction Status Date / Time Sulfa (Sulfonamide Allergy Intermediate MOUTH Verified 08/24/20 00:11 Antibiotics) SWELLING meperidine AdvReac NAUSEA Verified 08/24/20 00:11 morphine AdvReac NAUSEA Verified 08/24/20 00:11 oxycodone AdvReac NAUSEA Verified 08/24/20 00:11 Consultations 08/24/20 02:56 Consult General Surgery Stat ED Decision to Admit Stat 08/24/20 08:15 Consult Gastroenterology Routine Procedures Performed Operation Date: 08/27/20 16:30 Actual Procedures p Small Bowel Enteroscopy EGD - Majo Andino MD Ordered Studies Laboratory Results WBC 4.57 K/uL (4.8-10.8) L 08/26/20 12:00 RBC 4.14 M/uL (4.2-5.4) L 08/26/20 12:00 Hgb 12.2 g/dL (12.0-16.0) 08/26/20 12:00 Hct 35.6 % (37-47) L 08/26/20 12:00 MCV 86.0 fL (80-100) 08/26/20 12:00 MCH 29.5 pg (25-34) 08/26/20 12:00 MCHC 34.3 g/dL (32-36) 08/26/20 12:00 RDW Std Deviation 39.9 fL (36.4-46.3) 08/26/20 12:00 RDW Coeff of Steph 12.6 % (11.5-14.5) 08/26/20 12:00 Plt Count 171 K/uL (130-400) 08/26/20 12:00 MPV 11.6 fL (7.4-10.4) H 08/26/20 12:00 Immature Gran % (Auto) 0.2 % 08/26/20 12:00 Neut % (Auto) 60.0 % 08/26/20 12:00 Lymph % (Auto) 31.5 % 08/26/20 12:00 Wilkinson % (Auto) 3.5 % 08/26/20 12:00 Eos % (Auto) 4.4 % 08/26/20 12:00 Baso % (Auto) 0.4 % 08/26/20 12:00 Neut # (Auto) 2.74 K/uL (1.4-6.5) 08/26/20 12:00 Lymph # (Auto) 1.44 K/uL (1.2-3.4) 08/26/20 12:00 Wilkinson # (Auto) 0.16 K/uL (0.11-0.59) 08/26/20 12:00 Eos # (Auto) 0.20 K/uL (0-0.5) 08/26/20 12:00 Baso # (Auto) 0.02 K/uL (0-0.2) 08/26/20 12:00 Immature Gran # (Auto) 0.01 K/uL (0.00-0.02) 08/26/20 12:00 PT 10.9 Seconds (9.0-12.0) 08/24/20 00:15 INR 1.1 (0.9-1.1) 08/24/20 00:15 Sodium 137 mmol/L (136-145) 08/26/20 12:00 Potassium 4.1 mmol/L (3.5-5.1) 08/26/20 12:00 Chloride 105 mmol/L (98-107) 08/26/20 12:00 Carbon Dioxide 26 mmol/L (21-32) 08/26/20 12:00 Anion Gap 6.0 (3-11) 08/26/20 12:00 BUN 17 mg/dl (7-18) 08/26/20 12:00 Creatinine 1.04 mg/dl (0.6-1.2) 08/27/20 06:43 Est Cr Clr Drug Dosing 47.9 ml/min 08/27/20 06:43 Est GFR ( Amer) 65.8 08/27/20 06:43 Est GFR (Non-Af Amer) 56.7 08/27/20 06:43 BUN/Creatinine Ratio 14.8 (10-20) 08/26/20 12:00 Glucose 347 mg/dl (70-99) H* 08/26/20 12:00 POC Glucose 127 mg/dl (70-99) H 08/27/20 18:41 Lactate 1.4 mmol/L (0.4-2.0) 08/24/20 09:28 Calcium 9.1 mg/dl (8.5-10.1) 08/26/20 12:00 Magnesium 2.3 mg/dl (1.8-2.4) 08/26/20 12:00 Total Bilirubin 0.6 mg/dl (0.2-1) 08/26/20 12:00 AST 15 U/L (15-37) 08/26/20 12:00 ALT 19 U/L (12-78) 08/26/20 12:00 Alkaline Phosphatase 90 U/L (45-117) 08/26/20 12:00 Troponin I < 0.015 ng/ml (0-0.045) 08/24/20 00:15 Total Protein 7.2 gm/dl (6.4-8.2) 08/26/20 12:00 Albumin 3.4 gm/dl (3.4-5.0) 08/26/20 12:00 Globulin 3.8 gm/dl (2.5-4.0) 08/26/20 12:00 Albumin/Globulin Ratio 0.9 (0.9-2) 08/26/20 12:00 Lipase 35 U/L (73-393) L 08/26/20 12:00 Beta-Hydroxybutyric Acd mg/dl (0.2-2.81) 08/26/20 12:00 Procalcitonin < 0.05 ng/ml (0-0.5) 08/26/20 12:00 Urine Color Yellow 08/24/20 00:17 Urine Appearance Clear (Clear) 08/24/20 00:17 Urine pH 5.0 (4.5-7.5) 08/24/20 00:17 Ur Specific [place] 1.017 (1.000-1.030) 08/24/20 00:17 Urine Protein Negative (Negative) 08/24/20 00:17 Urine Glucose (UA) Negative (Negative) 08/24/20 00:17 Urine Ketones 1+ (Negative) H 08/24/20 00:17 Urine Blood Negative (Negative) 08/24/20 00:17 Urine Nitrite Negative (Negative) 08/24/20 00:17 Urine Bilirubin Negative (Negative) 08/24/20 00:17 Urine Urobilinogen Negative (Negative) 08/24/20 00:17 Ur Leukocyte Esterase Trace (Negative) H 08/24/20 00:17 Urine WBC (Auto) 10-30 /hpf (0-5) H 08/24/20 00:17 Urine RBC (Auto) 0-4 /hpf (0-4) 08/24/20 00:17 U Hyaline Cast (Auto) 5-10 /lpf (0-5) H 08/24/20 00:17 U Epithel Cells (Auto) >30 /lpf (0-5) H 08/24/20 00:17 Urine Bacteria (Auto) 1+ (Negative) H 08/24/20 00:17 Ur Renal Epithelial Cell Not Reportable 08/24/20 00:17 Calcium Oxalate Crystal Present (None Prsent) A 08/24/20 00:17 Granular Casts 1-5 /lpf (0) H 08/24/20 00:17 WBC Casts 1-5 /lpf (0) H 08/24/20 00:17 COVID-19 Eval Order [facility]sv at [facility] 08/24/20 04:43 SARS-CoV-2 (PCR) POSITIVE (Negative) A* 08/24/20 04:43 Influenza Type A (PCR) Negative (Neg) 08/24/20 04:43 Influenza Type B (PCR) Negative (Neg) 08/24/20 04:43 RSV (RT-PCR) Negative (Neg) 08/24/20 04:43 Impressions Abdomen/Pelvis CT 08/24/20 08:15 CT OF THE ABDOMEN AND PELVIS WITH ORAL CONTRAST CLINICAL HISTORY: severe abdominal pain. prior ct scan findings COMPARISON STUDY: CT of the abdomen and pelvis August 24, 2020 at 1:32 AM. TECHNIQUE: Axial images of the abdomen and pelvis were obtained without intr avenous contrast. Oral contrast was administered. Automated exposure control was utilized for the study. A dose lowering technique was utilized adhering to the principles of ALARA. FINDINGS: Mild ground glass opacities are noted within the lower lungs. No pneumatosis, free air or portal venous gas is present. Pneumobilia is again noted. Evaluation of the abdomen and pelvis is suboptimal on this unenhanced examination. Evaluation of the abdomen is better depicted on recent contrast- enhanced CT performed earlier today. Postsurgical findings involving the stomach as well as biliary enteric anastomosis are better depicted on the examination. Note is made of persistent marked wall thickening of the duodenum and multiple jejunal loops within the right upper quadrant. Adjacent inflammation is noted. This is similar to prior CT. No extraluminal oral contrast is present. The gallbladder is surgically absent. Venous thrombus is not shown on this unenhanced exam. Unenhanced images of the spleen, adrenal glands and kidneys are unremarkable. IVC filters in place. There is no evidence for a bowel obstruction. Prominent mesenteric nodes are noted. No acute fracture or suspicious lesion is identified within visualized skeletal structures. There is contrast within the collecting systems, ureters and bladder from recent contrast-enhanced CT. IMPRESSION: 1. Persistent marked wall thickening of the duodenum and multiple jejunal loops with adjacent infiltration. Postsurgical findings, as above. The findings are better depicted on contrast enhanced CT performed earlier today without sig nificant change since that exam. The small bowel wall thickening is nonspecific but could be due to venous ischemia given venous thrombus shown on contrast enhanced exam. Peptic ulcer disease/duodenitis could appear similar. Close clinical monitoring is recommended. 2. No pneumoperitoneum. No evidence for a bowel obstruction. ACT 112: Negative or not required by law. Electronically signed by: Lance Cortez M.D. 08/24/2020 11:26 AM Hospital Course (1) Duodenitis: Presented with severe abdominal pain, h/o necrotizing pancreatitis 2/2 gallstones in 02/2001. 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 Duodenitis didn't appear to be infectious and was thought ? related to inflammation from blood clot. Zosyn stopped shortly after admission and she continued to do well clinically. Imaging revealed a 1.4cm fluid filled structure medial to the duodenum, possibly a diverticulum. EGD on 08/27 revealed nonbleeding duodenal ulcers. She was started on a PPI BID for at least 3 months with close outpatient GI follow-up recommended. At time of dischrage all her original symptoms were resolved and she was tolerating PO without issue. (2) Superior mesenteric vein thrombosis: thrombus noted in SMV and splenic veins with collateral circulation giving the impression these are somewhat chronic. Currently on empiric anticoagulation with Lovenox since 08/24. She was transitioned to Eliquis once anticoagulation was able to be resumed post-procedure. She will need to be anticoagulated for at least 3 months and possible lifelong in setting of known hypercoagulable state. (3) Splenic vein thrombosis: Currently on empiric anticoagulation with Lovenox since 08/24. Uncertain chronicity of mesenteric venous thrombosis seen on contrast-enhanced CT exam, but appears to be acute. Not thought secondary to recent covid-19 vaccine. (4) Factor V Leiden: No h/o DVT per her report. Currently not on anticoagulation at home. (5) Acute kidney injury superimposed on chronic kidney disease: baseline creatinine is 1.1. She returned back to baseline prior to discharge. (6) History of COVID-19: This patient was infected with COVID-19 mid-June and was never hospitalized or treated with medical therapies. Positive result was received along with outpatient note. Will scan into system (07/04/20) She is not actively ill with COVID-19 at this time and has already received 1 of 2 covid vaccinations which is still encouraged. Her current symptoms are not thought secondary to a vaccine-related illness or side effect. At time of discharge she was hemodynamically stable and afebrile and tolerating PO. She was oxygenating well on room air and was ambulating well and mentating clearly. She was sent home in stable condition [facility] close primary care and GI follow-up recommended. 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 Factor V Leiden mutation Acute kidney injury superimposed on chronic kidney disease stage III-resolved History of COVID-19 in June 2020 Condition on Discharge: Good Activity: Resume your previous activity Non-emergency contact: Primary Care Provider Call non-emergency contact if: you have any medication questions, your symptoms worsen, your pain is not controlled, your pain is worsening, your pain is unusual for you, your pain is concerning for you and you have a fever Follow-up/Referrals: Alexis Merchant MD [Primary Care Provider] - (Date & Time 09/01/2020 3:00 PM Provider Alexis Merchant MD Department Family Medicine [facility] ) Diet: Carb Consistent or DM2 Addtl Attending Provider Instructions: Please take all medications as instructed on discharge list below. Please note you have been placed on apixaban, which is a blood thinner to treat your blood clot in your intestinal area. You should take 10 mg twice daily for the first week followed by 5 mg twice daily for the next 3 months. You should at least take the blood thinner for 3 months and then check with your primary care doctor or a mobile equipment mechanic if a longer duration is needed. You have been diagnosed with nonbleeding duodenal ulcers in your abdomen. Your aspirin has therefore been stopped. Please avoid any Motrin, ibuprofen, naproxen, Aleve or other nonsteroidal anti-inflammatory drugs (NSAIDs). Furthermore, you are being placed on Protonix 40 mg twice daily to treat your ulcers. It is recommended that you follow-up with your primary care doctor within 1 week of discharge from the hospital to ensure you are still doing well, and that you have not developed any problems on the blood thinner. It was a pleasure taking care of you! Please call if you have any questions or problems. You can reach a [facility] hospitalist on duty at [facility] 24 hours a day by calling [phone]. Take care of yourself. Anaid Petty, DO [facility] Hospitalist Pending Studies at Discharge: Yes Studies:: stomach biopsy-pathology pending at discharge. Stand-Alone Forms: My [facility] Medications and DC Order Prescriptions: New apixaban 5 mg tablet 5 mg PO BID Qty: 70 RF: 0 pantoprazole [Protonix] 40 mg tablet,delayed release (DR/EC) 40 mg PO BID Qty: 60 RF: 2 Continued calcium carbonate [Calcium 600] 600 mg calcium (1,500 mg) Tablet 600 mg PO DAILY RF: 0 lisinopril 10 mg tablet 10 mg PO DAILY RF: 0 metoprolol succinate 25 mg tablet extended release 24 hr 25 mg PO DAILY RF: 0 insulin lispro protamin-lispro [Humalog Mix 75-25 KwikPen] 100 unit/mL (75-25) Insulin Pen 12 unit SUBCUT BID RF: 0 Multivitamin Women 50 Plus 8 mg iron-400 mcg-300 mcg Tablet 1 tab PO DAILY RF: 0 Discontinued aspirin 81 mg Tablet,Delayed Release (Dr/Ec) 81 mg PO DAILY RF: 0 Discharge Orders: Discharge Order (Routine); Ordered 08/27/20 Ordered By: Anaid Petty Admission Data Admit Date/Time: 08/24/20 03:55 Attending Provider: Anaid Petty Admit Provider: Darrell Herrera Primary Care Provider: Alexis Merchant Other Providers: Kosta Roman ; Darrell Herrera ; Jamil Steel Other Interventions: Discharge Summary Assessment (RN) Last Done: 08/27/20 19:51
--- NOTE | 2020-08-27 22:22 | Anesthesiology Progress Note ---
Date of Service August 27, 2020 Anesthesia Post Procedure Vital Signs Vital Signs: Temp Pulse Resp BP BP Pulse Ox 08/27/20 19:51 97.7 F 62 16 180/93 H 184/78 H 100 08/27/20 19:26 180/93 H 08/27/20 17:56 97.7 F 62 16 184/78 H 100 08/27/20 17:29 74 20 145/70 H 99 08/27/20 17:15 71 16 130/62 99 08/27/20 11:55 98.1 F 66 18 141/92 H 100 08/26/20 23:36 97.7 F 66 18 157/78 H 95 Pain Intensity Right Upper Abdomen: Pain Intensity: 4 Transfer of Care Handoff Completed per policy Notes Mental Status: alert / awake / arousable and participated in evaluation Patient Amnestic to Procedure: Yes Nausea / Vomiting: adequately controlled Pain: adequately controlled Airway Patency, RR, SpO2: stable & adequate BP & HR: stable & adequate Hydration State: stable & adequate Anesthetic Complications: no major complications apparent and Pt Satisfied with anesthetic care
== END 2020-08-27 21:10 | disposition home or self-care (01) | DRG 383 ==
LOC: ED 23:36 → SUATTDRO 08-24 03:55 → 2S 08-24 03:55